=== PATIENT | female | born 1980 | race Caucasian/White ===

== ENCOUNTER 2016-12-19 05:24 | Day surgery (SDC) | payer MEDICAID ==
[2016-12-17 10:59] LABS: HEMATOCRIT 37.9 % (36.0-47.0); HEMOGLOBIN 13.3 g/dL (12.0-15.5); MEAN CORPUSCULAR HGB CONC 35.2 g/dL (32.0-36.0); MEAN CORPUSCULAR VOLUME 94 fl (80-97); RED BLOOD COUNT 4.04 10^6/uL (3.72-5.28); RED CELL DISTRIBUTION WIDTH 14.3 % (11.5-14.0); WHITE BLOOD COUNT 6.3 10^3/uL (4.0-10.5)
[2016-12-17 11:07] LABS: APPEARANCE,URINE CLEAR; BILIRUBIN,URINE NEGATIVE (NEGATIVE); GLUCOSE, URINE NEGATIVE (NEGATIVE); KETONES,URINE NEGATIVE (NEGATIVE); LEUKOCYTE ESTERASE,URINE NEGATIVE (NEGATIVE); NITRITE,URINE NEGATIVE (NEGATIVE); PROTEIN,URINE NEGATIVE (NEGATIVE); URINE SPECIFIC GRAVITY 1.001; UROBILINOGEN,URINE NEGATIVE mg/dL (<2.0)
[2016-12-17 11:21] LABS: ALANINE AMINOTRANSFERASE 25 U/L (9-52); ALBUMIN 4.9 g/dL (3.5-5.0); ALKALINE PHOSPHATASE 74 U/L (38-126); ANION GAP 12 (5-19); ASPARTATE AMINO TRANSFERASE 25 U/L (14-36); BILIRUBIN,DIRECT 0.2 mg/dL (0.0-0.4); BILIRUBIN,TOTAL 0.9 mg/dL (0.2-1.3); BLOOD UREA NITROGEN 11 mg/dL (7-20); CALCIUM 10.1 mg/dL (8.4-10.2); CARBON DIOXIDE 27 mmol/L (22-30); CHLORIDE 101 mmol/L (98-107); CREATININE RESULT 0.59 mg/dL (0.52-1.25); GLUCOSE 79 mg/dL (75-110); POTASSIUM 5.5 mmol/L (3.6-5.0); SODIUM 139.7 mmol/L (137-145); TOTAL PROTEIN 7.8 g/dL (6.3-8.2)
--- NOTE | 2016-12-17 20:08 | EKG REPORT ---
SEVERITY:- NORMAL ECG - SINUS RHYTHM : Confirmed by: Daysi Tapia MD 17-Dec-2016 20:07:37
[~2016-12-19 05:24] MED LIST: CEFAZOLIN 1 GM/D5W RTU 1 GM/50 ML RTUPB IV PRN; IBUPROFEN 800 MG TABLET PO PRN; LACTATED RINGERS 1000 ML IV PRN; LIDOCAINE 0.5% INJ-PF (5 MG/ML) 50 ML SDV SUBCUT PRN; OXYCODONE-ACETAMINOPHEN 5-325 MG TABLET PO PRN; SCOPOLAMINE HYDROBROMIDE 1.5 MG PATCH.TD72 TD PRN
[2016-12-19] MEDS ORDERED: NA PHOS,M-B/NA PHOS,DI-BA (ADULT) 133 ML ENEMA PR SCH (06:00)
[2016-12-19] MEDS ORDERED: FENTANYL CITRATE INJ/PF 250 MCG/5 ML AMPULE ONE (07:00)
[2016-12-19] MEDS ORDERED: MIDAZOLAM 2 MG/2 ML INJ ONE (07:01)
[2016-12-19] MEDS ORDERED: PROPOFOL INJ 200 MG/20 ML VIAL IV ONE (07:01)
[2016-12-19] MEDS ORDERED: EPHEDRINE SULFATE INJ 50 MG/1 ML AMPULE ONE (07:01)
[2016-12-19] MEDS ORDERED: DEXMEDETOMIDINE INJ 80 MCG/20 ML VIAL IV ONE (07:01)
[2016-12-19] MEDS ORDERED: ACETAMINOPHEN 100 ML IV ONE ×2 (07:01→15:00)
[2016-12-19] MEDS ORDERED: MORPHINE SULFATE 10 MG/ML INJ ONE (07:02)
[2016-12-19] MEDS ORDERED: FAMOTIDINE INJ/PF 20 MG/2 ML SDV IV ONE (07:12)
[2016-12-19] MEDS ORDERED: SCOPOLAMINE HYDROBROMIDE 1.5 MG PATCH.TD72 ONE (07:14)
[2016-12-19] MEDS ORDERED: BUPIVACAINE HCL 0.25 % INJ/PF (2.5 MG/1 ML) 30 ML VIAL ONE (07:44)
[2016-12-19] MEDS ORDERED: ONDANSETRON HCL INJ/PF 4 MG/2 ML SDV IV PRN (10:51)
[2016-12-19] MEDS ORDERED: FENTANYL CITRATE INJ/PF 100 MCG/2 ML AMPUL IV PRN ×3 (10:51)
[2016-12-19] MEDS ORDERED: DIPHENHYDRAMINE HCL 50 MG/ML VIAL IV PRN (10:51)
[2016-12-19] MEDS ORDERED: MEPERIDINE HCL/PF INJ 25 MG/1 ML DISP.SYRIN IV PRN (10:51)
--- NOTE | 2016-12-19 10:58 | OPERATIVE REPORT E ---
Operative Report NAME: ANGEL DONATO : 1980 AGE: 36Y DATE OF SURGERY: 12/19/2016 ROOM: PREOPERATIVE DIAGNOSIS: Abnormal uterine bleeding, pelvic pain, adhesive disease, personal history of bilateral mastectomy for breast cancer and positive for the BRCA2 gene mutation. POSTOPERATIVE DIAGNOSIS: Abnormal uterine bleeding, pelvic pain, adhesive disease, personal history of bilateral mastectomy for breast cancer and positive for the BRCA2 gene mutation. Endometriosis. OPERATION: Robotic assisted total laparoscopic hysterectomy with left salpingo-oophorectomy, right salpingectomy, lysis of adhesions, and fulguration of endometriosis. SURGEON: REENA SPENCER M.D. ANESTHESIA: Dr. Jarquin, general. FINDINGS: Dense adhesions of the bladder to the anterior aspect of the uterus. Filmy adhesions of the ovaries and omentum to the pelvic sidewalls. Absent right ovary, but fallopian tube remnant was still present. Left ovary was adhesed to the left pelvic sidewall with several filmy adhesions. COMPLICATIONS: None. ESTIMATED BLOOD LOSS: 200 mL SPECIMENS REMOVED: Uterus, tubes, and left ovary. PROCEDURE: The patient was taken to the operating room, prepared and draped in normal sterile fashion in dorsal lithotomy position. Under sterile conditions, a Andrade catheter was placed to gravity. A sterile speculum was placed in the vagina. The cervix was inspected. The cervix was grasped along the anterior aspect with a single tooth tenaculum. Cervix was prepped with Betadine and then the cervix was dilated to 10 mm, through which a medium V-Care uterine manipulator was placed without difficulty. Speculum was removed. Gloves were changed, and attention was turned to the upper portion of the case. Umbilical skin incision was made to accommodate a GelPort accessory device. This was placed without difficulty, and the abdomen was inflated with approximately 2 liters of CO2 gas. The camera was placed through the camera trocar and the GelPort, and the abdomen was inspected with the above findings noted. The patient was placed in steep Trendelenburg. Under direct visualization, two 5 mm ports were placed approximately 10 cm on either side of the umbilicus to accommodate the robotic trocars. The robot was then docked and the *------*. Using the Vessel Sealer and the monopolar scissors, I began with inspection of the right pelvic sidewall. The remnant of the fallopian tube was then transected and removed using the monopolar scissors, and removed for the accessory port. The right infundibulopelvic ligament was then transected using the Vessel Sealer and the rest of the uterine artery was skeletonized and transected using the Vessel Sealer to the level of the outer external cervical os. The bladder flap was begun using the monopolar scissors and blunt dissection. Attention was then turned to the left portion of the case, where the left ovary was identified adhesed to the left pelvic sidewall. The infundibulopelvic ligament was inspected and identified. This was transected using the Vessel Sealer, carrying this through to the round ligament. The round ligament was transected. The ureter on both sides were reinspected and found to be peristalsing normally and well away from our surgical field. The uterine artery was then transected on the left down to the level of the external cervical os, and the bladder flap was then completed using the monopolar scissors. The colporrhaphy was then begun on the posterior aspect of the uterus, following the V-Care Cup using the monopolar scissors circumferentially all the way around until the specimen was freed, and the specimen and the V-Care were then removed through the vagina. The instruments were replaced with a [employer] Needle Account Management Assistant and the Prograf. These were used using a V-LOC suture to close the vaginal cuff with good hemostasis. The ureters were reinspected and found to be peristalsing normally, and no sign of hydroureter. Instruments were then removed and the robot was undocked. The trocars were removed and the GelPort was removed. The fascia was then closed with 0 Vicryl running. Layer of 3-0 Chromic was used on the subcutaneous layer to close the space, and the skin was closed at all 3 sites with 4-0 Vicryl. The patient tolerated the procedure well. Sponge, lap, and needle counts were correct x2, and the patient was taken to the recovery room in stable condition. DICTATING PHYSICIAN: REENA SPENCER M.D. [id number] PHY#: [id number] ID: [id number] JOB#: [id number] ACCT: [id number] cc:REENA SPENCER M.D. >
[2016-12-19] MEDS: FENTANYL CITRATE INJ/PF 100 MCG/2 ML AMPUL ONE ×2 (11:06→11:23)
[2016-12-19] MEDS ORDERED: IBUPROFEN 800 MG TABLET PO PRN (11:35)
[2016-12-19] MEDS ORDERED: OXYCODONE-ACETAMINOPHEN 5-325 MG TABLET PO PRN (11:35)
[2016-12-19] MEDS ORDERED: MORPHINE SULFATE 10 MG/ML INJ IV PRN (11:36)
[2016-12-19] MEDS ORDERED: KETOROLAC TROMETHAMINE INJ/PF 30 MG/1 ML SDV IV SCH (14:00)
[2016-12-19] MEDS ORDERED: GLYCOPYRROLATE INJ 0.4 MG/2 ML VIAL ONE (14:11)
[2016-12-19] MEDS ORDERED: ONDANSETRON HCL INJ/PF 4 MG/2 ML SDV ONE (14:11)
[2016-12-19] MEDS ORDERED: DEXAMETHASONE SOD PHOSPHATE INJ 4 MG/1 ML VIAL ONE (14:11)
[2016-12-19] MEDS ORDERED: SUCCINYLCHOLINE CHLORIDE INJ 200 MG/10 ML VIAL ONE (14:11)
[2016-12-19] MEDS ORDERED: KETOROLAC TROMETHAMINE 60 MG/2 ML SDV ONE (14:11)
[2016-12-19] MEDS ORDERED: PHENYLEPHRINE HCL INJ/PF 10 MG/1 ML SDV ONE (14:11)
[2016-12-19] MEDS ORDERED: METOCLOPRAMIDE HCL INJ/PF 10 MG/2 ML SDV ONE (14:11)
[2016-12-19] MEDS ORDERED: LIDOCAINE 2% INJ-PF (20 MG/ML) 10 ML AMPUL ONE (14:11)
[2016-12-19] MEDS ORDERED: ROCURONIUM BROMIDE INJ 50 MG/5 ML VIAL IV ONE (14:11)
[2016-12-19] MEDS ORDERED: NEOSTIGMINE METHYLSULFATE 10 MG/10 ML VIAL ONE (14:11)
[2016-12-19 17:30] VITALS: BP 126/93
[2016-12-20] MEDS ORDERED: IBUPROFEN 800 MG TABLET PO PRN (12:00)
== END 2016-12-19 18:02 | disposition home or self-care (01) ==
LOC: OROUT 05:24 → 2S 12:33 → OROUT 18:02
PROVIDERS: ATTEND Obstetrics & Gynecology
PROC: 0UTC4ZZ Resection of Cervix, Percutaneous Endoscopic Approach (ICD-10-PCS; 2016-12-19)
PROC: 0UT14ZZ Resection of Left Ovary, Percutaneous Endoscopic Approach (ICD-10-PCS; 2016-12-19)
PROC: 0UT74ZZ Resection of Bilateral Fallopian Tubes, Percutaneous Endoscopic Approach (ICD-10-PCS; 2016-12-19)
PROC: 8E0W4CZ Robotic Assisted Procedure of Trunk Region, Percutaneous Endoscopic Approach (ICD-10-PCS; 2016-12-19)
PROC: 0UT94ZZ Resection of Uterus, Percutaneous Endoscopic Approach (ICD-10-PCS; principal; 2016-12-19 07:30)
DX: N80.0 Endometriosis of uterus (principal); N83.12 Corpus luteum cyst of left ovary; N83.8 Other noninflammatory disorders of ovary, fallopian tube and broad ligament; N72 Inflammatory disease of cervix uteri; R10.2 Pelvic and perineal pain; G43.909 Migraine, unspecified, not intractable, without status migrainosus; N80.9 Endometriosis, unspecified; Z85.3 Personal history of malignant neoplasm of breast; Z79.899 Other long term (current) drug therapy; Z15.01 Genetic susceptibility to malignant neoplasm of breast; Z88.8 Allergy status to other drugs, medicaments and biological substances; Z88.2 Allergy status to sulfonamides; Z87.891 Personal history of nicotine dependence
CPT/HCPCS: 58571; S2900; 36415; 71020; 80053; 81001; 81025; 840; 84132; 85027; 86850; 86900; 86901; 88307; 93005; 93010; J0131; J0330; J0690; J1100; J1885; J2250; J2270; J2370; J2405; J2704; J2765; J3010; J3490; S0028

== ENCOUNTER 2018-04-20 16:45 | Inpatient (IN) | payer MEDICAID, OTHER ==
[2018-04-20] MEDS ORDERED: NORMAL SALINE 1000 ML 1,000 ML IV ONE (18:25)
--- NOTE | 2018-04-20 18:27 | ER Document Report ---
ED Medical Screen (RME) - General Chief Complaint: Shortness Of Breath Stated Complaint: DIFFICULTY BREATHING Time Seen by Provider: 04/20/18 18:19 TRAVEL OUTSIDE OF THE [place] IN LAST 30 DAYS: No - HPI Notes: 04/20/18 18:26 Patient with history of breast cancer now treated. Patient says she has been cancer free. Patient with a recent trip from [place] coming for shortness of breath. Patient is tachycardic however states that she is very anxious about being here. 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 Dry cough no fevers no chills - Related Data Allergies/Adverse Reactions: nitrofurantoin [From Macrobid] Allergy (Severe, Verified 09/25/14 15:17) swelling of airway promethazine HCl [From Phenergan] Allergy (Intermediate, Verified 09/25/14 15:17 ) HEART RACES codeine Allergy (Verified 12/19/16 06:32) yogurt Allergy (Intermediate, Uncoded 09/25/14 15:17) Hives Past Medical History - Social History Chew tobacco use (# tins/day): No Frequency of alcohol use: Occasional Drug Abuse: None - Past Medical History Cardiac Medical History: Denies: Hx Coronary Artery Disease, Hx Heart Attack, Hx Hypertension, Hx Heart Murmur Pulmonary Medical History: Denies: Hx Asthma, Hx Bronchitis, Hx COPD, Hx Pneumonia Neurological Medical History: Reports: Hx Migraine. Denies: Hx Cerebrovascular Accident, Hx Seizures Renal/ Medical History: Denies: Hx Kidney Stones, Hx Peritoneal Dialysis GI Medical History: Reports: Hx Gastroesophageal Reflux Disease - with pregnanacy only. Denies: Hx Hiatal Hernia, Hx Ulcer Musculoskeltal Medical History: Denies Hx Arthritis Past Surgical History: Reports: Hx Section - x2. Denies: Hx Pacemaker - Immunizations Hx Diphtheria, Pertussis, Tetanus Vaccination: Yes Review of Systems - Review of Systems Respiratory: Cough, Short of breath -: Yes All other systems reviewed and negative Physical Exam - Vital signs Vitals: Temp Pulse Resp BP Pulse Ox 98.6 F 121 H 14 135/87 H 97 04/20/18 16:48 04/20/18 16:48 04/20/18 16:48 04/20/18 16:48 04/20/18 16:48 - General General appearance: Appears well In distress: None - Respiratory Respiratory status: No respiratory distress Chest status: Pain on movement Breath sounds: Other - Decreased on the right Course - Vital Signs Vital signs: Temp Pulse Resp BP Pulse Ox 98.6 F 121 H 14 135/87 H 97 04/20/18 16:48 04/20/18 16:48 04/20/18 16:48 04/20/18 16:48 04/20/18 16:48 Doctor's Discharge - Discharge Referrals: AKILAH MOORE MD [Primary Care Provider] - Follow up as needed
[2018-04-20 18:59] LABS: ABSOLUTE BASOPHILS # (AUTO) 0.1 10^3/uL (0.0-0.2); ABSOLUTE EOSINOPHILS # (AUTO) 0.1 10^3/uL (0.0-0.6); ABSOLUTE LYMPHOCYTES (AUTO) 2.2 10^3/uL (0.5-4.7); ABSOLUTE NEUT (AUTO) 7.9 10^3/uL (1.7-8.2); BASOPHILS % (AUTO) 0.5 % (0-2); EOSINOPHILS % (AUTO) 1.1 % (0-6); HEMOGLOBIN 15.1 g/dL (12.0-15.5); LYMPHOCYTES % (AUTO) 19.2 % (13-45); MEAN CORPUSCULAR HEMOGLOBIN 32.4 pg (27.0-33.4); MEAN CORPUSCULAR HGB CONC 34.4 g/dL (32.0-36.0); MEAN CORPUSCULAR VOLUME 94 fl (80-97); MONOCYTES % (AUTO) 8.8 % (3-13); PLATELET COUNT 400 10^3/uL (150-450); RED BLOOD COUNT 4.67 10^6/uL (3.72-5.28); RED CELL DISTRIBUTION WIDTH 12.6 % (11.5-14.0); SEGMENTED NEUTROPHILS % (AUTO) 70.4 % (42-78); TOTAL CELLS COUNTED % (AUTO) 100 %; WHITE BLOOD COUNT 11.2 10^3/uL (4.0-10.5)
--- NOTE | 2018-04-20 19:11 | RADIOLOGY REPORT (SQ) ---
EXAM DESCRIPTION: CHEST 2 VIEWS COMPLETED DATE/TIME: 04/20/2018 7:00 pm REASON FOR STUDY: sob COMPARISON: 09/25/2014. TECHNIQUE: Frontal and lateral radiographic views of the chest acquired. NUMBER OF VIEWS: Two view. LIMITATIONS: None. FINDINGS: LUNGS AND PLEURA: Extensive increased density throughout the lower half of the right hemit horax. This is consistent with right middle lobe and right lower lobe pneumonia. Mild associated pl eural effusion. Faint nodular densities may be present in the lung lopez as well. No pneumothorax. MEDIASTINUM AND HILAR STRUCTURES: No masses or contour abnormalities. HEART AND VASCULAR STRUCTURES: Heart normal size. No evidence for failure. BONES: No acute findings. HARDWARE: None in the chest. OTHER: No other significant finding. IMPRESSION: 1. Extensive right lung consolidation and small effusion. Consistent with pneumonia. 2. Scattered faint nodules in the lungs, potentially also infectious/ inflammatory. Recommend survei llance followup imaging to document response to therapy. If the infiltrates and opacities do not res olve promptly, chest CT should be considered. TECHNICAL DOCUMENTATION: JOB ID: [id number] [email or web address] All Rights Reserved Reading location - IP/workstation name: [email or web address]
[2018-04-20] MEDS ORDERED: LEVOFLOXACIN 500 MG/D5W RTU 500 MG/100 ML RTUPB IV ONE (19:17)
[2018-04-20 19:18] LABS: ALANINE AMINOTRANSFERASE 22 U/L (9-52); ALBUMIN 4.9 g/dL (3.5-5.0); ALKALINE PHOSPHATASE 103 U/L (38-126); ANION GAP 13 (5-19); ASPARTATE AMINO TRANSFERASE 35 U/L (14-36); BILIRUBIN,DIRECT 0.3 mg/dL (0.0-0.4); BILIRUBIN,TOTAL 0.6 mg/dL (0.2-1.3); BLOOD UREA NITROGEN 8 mg/dL (7-20); CALCIUM 10.3 mg/dL (8.4-10.2); CARBON DIOXIDE 30 mmol/L (22-30); CHLORIDE 101 mmol/L (98-107); GLUCOSE 94 mg/dL (75-110); LIPASE 40.9 U/L (23-300); POTASSIUM 4.2 mmol/L (3.6-5.0); SODIUM 144.3 mmol/L (137-145); TOTAL PROTEIN 8.9 g/dL (6.3-8.2)
[2018-04-20 20:21] LABS: TROPONIN I 0.017 ng/mL
--- NOTE | 2018-04-20 20:28 | ER Document Report ---
ED Respiratory Problem - General Chief Complaint: Shortness Of Breath Stated Complaint: DIFFICULTY BREATHING Time Seen by Provider: 04/20/18 18:19 Mode of Arrival: Ambulatory Information source: Patient TRAVEL OUTSIDE OF THE [place] IN LAST 30 DAYS: No - HPI Patient complains to provider of: Short of breath Onset: Just prior to arrival Duration: Continuous Quality of pain: Achy, Dull Severity: Mild Pain Level: 2 Short of Breath: Mild Chest pain/discomfort: Right Cough: Nonproductive Sputum amount: None Associated symptoms: None Similar symptoms previously: No Recently seen / treated by doctor: No - Related Data Allergies/Adverse Reactions: nitrofurantoin [From Macrobid] Allergy (Severe, Verified 09/25/14 15:17) swelling of airway promethazine HCl [From Phenergan] Allergy (Intermediate, Verified 09/25/14 15:17 ) HEART RACES codeine Allergy (Verified 12/19/16 06:32) yogurt Allergy (Intermediate, Uncoded 09/25/14 15:17) Hives Past Medical History - Social History Smoking Status: Former Smoker Chew tobacco use (# tins/day): No Frequency of alcohol use: Occasional Drug Abuse: None Family History: Reviewed & Not Pertinent Patient has suicidal ideation: No Patient has homicidal ideation: No - Past Medical History Cardiac Medical History: Denies: Hx Coronary Artery Disease, Hx Heart Attack, Hx Hypertension, Hx Heart Murmur Pulmonary Medical History: Denies: Hx Asthma, Hx Bronchitis, Hx COPD, Hx Pneumonia Neurological Medical History: Reports: Hx Migraine. Denies: Hx Cerebrovascular Accident, Hx Seizures Renal/ Medical History: Denies: Hx Kidney Stones, Hx Peritoneal Dialysis GI Medical History: Reports: Hx Gastroesophageal Reflux Disease - with pregnanacy only. Denies: Hx Hiatal Hernia, Hx Ulcer Musculoskeletal Medical History: Denies Hx Arthritis Past Surgical History: Reports: Hx Section - x2. Denies: Hx Pacemaker - Immunizations Hx Diphtheria, Pertussis, Tetanus Vaccination: Yes Review of Systems - Review of Systems Constitutional: denies: Chills, Fever EENT: No symptoms reported Cardiovascular: Chest pain Respiratory: Cough, Short of breath Gastrointestinal: No symptoms reported Genitourinary: No symptoms reported Female Genitourinary: No symptoms reported Musculoskeletal: No symptoms reported Skin: No symptoms reported Hematologic/Lymphatic: No symptoms reported Neurological/Psychological: No symptoms reported -: Yes All other systems reviewed and negative Physical Exam - Vital signs Vitals: Temp Pulse Resp BP Pulse Ox 98.6 F 121 H 14 135/87 H 97 04/20/18 16:48 04/20/18 16:48 04/20/18 16:48 04/20/18 16:48 04/20/18 16:48 - General General appearance: Appears well, Alert In distress: None - HEENT Head: Normocephalic, Atraumatic Eyes: Normal Pupils: PERRL - Respiratory Respiratory status: No respiratory distress Chest status: Nontender Breath sounds: Decreased air movement Chest palpation: Normal - Cardiovascular Rhythm: Regular Heart sounds: Normal auscultation Murmur: No - Abdominal Inspection: Normal Distension: No distension Bowel sounds: Normal Tenderness: Nontender Organomegaly: No organomegaly - Back Back: Normal, Nontender - Extremities General upper extremity: Normal inspection, Nontender, Normal color, Normal ROM , Normal temperature General lower extremity: Normal inspection, Nontender, Normal color, Normal ROM , Normal temperature, Normal weight bearing. No: Rubens's sign - Neurological Neuro grossly intact: Yes Cognition: Normal Orientation: AAOx4 Gabriella Coma Scale Eye Opening: Spontaneous Gabriella Coma Scale Verbal: Oriented Gabriella Coma Scale Motor: Obeys Commands Gabriella Coma Scale Total: 15 Speech: Normal Motor strength normal: LUE, RUE, LLE, RLE Sensory: Normal - Psychological Associated symptoms: Normal affect, Normal mood - Skin Skin Temperature: Warm Skin Moisture: Dry Skin Color: Normal Course - Re-evaluation Re-evalutation: 04/21/18 03:16 Discussed patient care with the hospitalist on-call Dr. Reeves. We will admit patient to the hospital for further evaluation and management. - Vital Signs Vital signs: Temp Pulse Resp BP Pulse Ox 98.6 F 121 H 19 121/88 H 98 04/20/18 16:48 04/20/18 16:48 04/20/18 22:01 04/20/18 22:01 04/20/18 22:01 - Laboratory Result Diagrams: 04/20/18 18:48 04/20/18 18:48 Laboratory results interpreted by me: 04/20/18 04/20/18 04/20/18 18:48 18:48 18:48 WBC 11.2 H D-Dimer 3.58 H Calcium 10.3 H Total Protein 8.9 H - Transfer of Care Notes: 04/21/18 03:16 Pneumonia Discharge - Discharge Clinical Impression: Pleural effusion Pneumonia Qualifiers: Pneumonia type: due to unspecified organism Laterality: right Lung location: lower lobe of lung Qualified Code(s): J18.1 - Lobar pneumonia, unspecified organism Condition: Stable Disposition: ADMITTED INPATIENT Admitting Provider: Dr Reeves Unit Admitted: Telemetry
[2018-04-20] MEDS ORDERED: LEVOFLOXACIN 750 MG/D5W RTU 750 MG/150 ML RTUPB IV ONE (20:37)
--- NOTE | 2018-04-20 21:37 | RADIOLOGY REPORT (SQ) ---
EXAM DESCRIPTION: CTA CHEST COMPLETED DATE/TIME: 04/20/2018 9:18 pm REASON FOR STUDY: sob tachy hx breast ca return from [place] COMPARISON: Chest x-ray 04/20/2018 TECHNIQUE: CT scan of the chest performed using helical scanning technique with dynamic intravenous contrast injection. Images reviewed with lung, soft tissue and bone windows. Reconstructed coronal and sagittal MPR images reviewed. Additional 3 dimensional post-processing performed to develop Maximal Intensity Projection images (PA P). All images stored on PACS. All CT scanners at this facility use dose modulation, iterative reconstruction, and/or weight based d osing when appropriate to reduce radiation dose to as low as reasonably achievable (ALARA). [facility]: Dose Right [facility]: CareDose [facility]: Dose Right [facility]: Teradose 4D [facility]: Scripped CONTRAST TYPE AND DOSE: contrast/concentration: Isovue 350.00 mg/ml; Total Contrast Delivered: 57.0 ml; Total Saline Delivered: 45.7 ml Contrast bolus adequate for pulmonary arteries and aorta. RENAL FUNCTION: BUN 8 creatinine 0.6 RADIATION DOSE: CT Rad equipment meets quality standard of care and radiation dose reduction techniq ues were employed. CTDIvol: 3.3 - 14.3 mGy. DLP: 508 mGy-cm. . LIMITATIONS: None. FINDINGS: LUNGS AND PLEURA: Large right pleural effusion. Multiple pulmonary nodules in both lungs. The largest on each side are by 11 mm. Compressive atelectasis in the right lower lobe. AORTA AND GREAT VESSELS: No aneurysm. Contrast bolus not optimized for the aorta. HEART: No pericardial effusion. No significant coronary artery calcifications. PULMONARY ARTERIES: No emboli visualized in the main pulmonary arteries or the segmental branches. HILAR AND MEDIASTINAL STRUCTURES: Mild right hilar adenopathy. HARDWARE: None in the chest. UPPER ABDOMEN: No significant findings. Limited exam. THYROID AND OTHER SOFT TISSUES: No masses. No adenopathy. BONES: No acute or significant finding. 3D MIPS: Confirm above findings. OTHER: None. IMPRESSION: 1. There is no evidence of pulmonary emboli. 2. There is large right pleural effusion with compressive atelectasis in the right lower lobe and mi ddle lobe. 3. Multiple pulmonary nodules bilaterally. Concerning for metastatic neoplasm. Could be inflammato ry. 4. Right hilar adenopathy. COMMENT: Quality ID # [id number]: Final reports with documentation of one or more dose reduction techniques (e.g., Automated exposure control, adjustment of the mA and/or kV according to patient size, use of iterative reconstruction technique) TECHNICAL DOCUMENTATION: JOB ID: [id number] [employer]- All Rights Reserved Reading location - IP/workstation name: [email or web address]
--- NOTE | 2018-04-20 22:32 | EKG REPORT ---
SEVERITY:- OTHERWISE NORMAL ECG - SINUS TACHYCARDIA : Confirmed by: Abner Samuels 20-Apr-2018 22:31:37
[2018-04-21] MEDS: IPRATROPIUM/ALBUTEROL 0.5-2.5 MG/3 ML AMPUL NEB PRN ×2 (03:16→11:09)
[2018-04-21 05:23] LABS: ABSOLUTE EOSINOPHILS # (AUTO) 0.1 10^3/uL (0.0-0.6); ABSOLUTE LYMPHOCYTES (AUTO) 1.9 10^3/uL (0.5-4.7); ABSOLUTE MONOCYTES (AUTO) 0.8 10^3/uL (0.1-1.4); ABSOLUTE NEUT (AUTO) 5.4 10^3/uL (1.7-8.2); BASOPHILS % (AUTO) 0.5 % (0-2); EOSINOPHILS % (AUTO) 1.2 % (0-6); HEMATOCRIT 37.5 % (36.0-47.0); LYMPHOCYTES % (AUTO) 23.1 % (13-45); MEAN CORPUSCULAR HEMOGLOBIN 32.5 pg (27.0-33.4); MEAN CORPUSCULAR HGB CONC 34.3 g/dL (32.0-36.0); MEAN CORPUSCULAR VOLUME 95 fl (80-97); MONOCYTES % (AUTO) 9.9 % (3-13); PLATELET COUNT 291 10^3/uL (150-450); RED BLOOD COUNT 3.95 10^6/uL (3.72-5.28); RED CELL DISTRIBUTION WIDTH 12.7 % (11.5-14.0); SEGMENTED NEUTROPHILS % (AUTO) 65.3 % (42-78); TOTAL CELLS COUNTED % (AUTO) 100 %; WHITE BLOOD COUNT 8.2 10^3/uL (4.0-10.5)
[2018-04-21 05:24] LABS: HEMOGLOBIN 12.8 g/dL (12.0-15.5)
[2018-04-21 05:49] LABS: ANION GAP 11 (5-19); BLOOD UREA NITROGEN 6 mg/dL (7-20); CALCIUM 9.1 mg/dL (8.4-10.2); CARBON DIOXIDE 25 mmol/L (22-30); CHLORIDE 107 mmol/L (98-107); GLUCOSE 145 mg/dL (75-110); POTASSIUM 3.7 mmol/L (3.6-5.0); SODIUM 142.5 mmol/L (137-145)
--- NOTE | 2018-04-21 06:55 | PDOC H&P ---
History of Present Illness Admission Date/PCP: 04/20/18 23:25 AKILAH MOORE MD Patient complains of: Shortness of breath History of Present Illness: ANGEL DONATO is a 38 year old female with a known past medical history of breast cancer status post mastectomy presenting to the emergency department secondary to shortness of breath. Says she has been having right-sided back pain for the past couple of weeks. States she was in [place] and recently returned on April 09. Since then she has been having shortness of breath with exertion, worsened while lying down. She was seen by her primary care physician recently who advised her to present to the ER for further workup and evaluation. Back pain described as a soreness. Past Medical History Cardiac Medical History: Denies: Coronary Artery Disease, Myocardial Infarction, Hypertension, Heart Murmur Pulmonary Medical History: Denies: Asthma, Bronchitis, Chronic Obstructive Pulmonary Disease (COPD), Pneumonia Neurological Medical History: Reports: Migraine Denies: Seizures Malignancy Medical History: Reports: Breast Cancer GI Medical History: Reports: Gastroesophageal Reflux Disease - with pregnanacy only Denies: Hiatal Hernia Musculoskeltal Medical History: Denies: Arthritis Hematology: Denies: Anemia Past Surgical History Past Surgical History: Reports: Section - x2, Other - Mastectomy Denies: Pacemaker Social History Information Source: Patient Lives with: Spouse/Significant other Smoking Status: Former Smoker Drugs: None Family History Family History: None, Reviewed & Not Pertinent Parental Family History Reviewed: Yes Children Family History Reviewed: Yes Sibling(s) Family History Reviewed.: Yes Medication/Allergy Home Medications: Lorazepam 0.5 mg PO DAILY 12/08/16 Multivit with Calcium,Iron,Min [Multiple Vitamins For Women] 1 each PO DAILY 06/16 Ibuprofen [Motrin 800 mg Tablet] 800 mg PO Q8HP PRN #30 tablet 12/19/16 Allergies/Adverse Reactions: nitrofurantoin [From Macrobid] Allergy (Severe, Verified 09/25/14 15:17) swelling of airway promethazine HCl [From Phenergan] Allergy (Intermediate, Verified 09/25/14 15:17 ) HEART RACES codeine Allergy (Verified 12/19/16 06:32) yogurt Allergy (Intermediate, Uncoded 09/25/14 15:17) Hives Review of Systems Constitutional: ABSENT: chills, fever(s), headache(s), weight gain, weight loss Eyes: ABSENT: visual disturbances Ears: ABSENT: hearing changes Cardiovascular: PRESENT: dyspnea on exertion, orthropnea. ABSENT: chest pain, edema, palpitations Respiratory: PRESENT: dyspnea. ABSENT: cough, hemoptysis Gastrointestinal: ABSENT: abdominal pain, constipation, diarrhea, hematemesis, hematochezia, nausea, vomiting Genitourinary: ABSENT: dysuria, hematuria Musculoskeletal: PRESENT: back pain. ABSENT: joint swelling Integumentary: ABSENT: rash, wounds Neurological: ABSENT: abnormal gait, abnormal speech, confusion, dizziness, focal weakness, syncope Psychiatric: ABSENT: anxiety, depression, homidical ideation, suicidal ideation Endocrine: ABSENT: cold intolerance, heat intolerance, polydipsia, polyuria Hematologic/Lymphatic: ABSENT: easy bleeding, easy bruising Physical Exam Vital Signs: Temp Pulse Resp BP Pulse Ox 98.6 F 121 H 19 121/88 H 98 04/20/18 16:48 04/20/18 16:48 04/20/18 22:01 04/20/18 22:01 04/20/18 22:01 Intake & Output 04/19/18 04/20/18 04/21/18 06:59 06:59 06:59 Intake Total 150 Balance 150 General appearance: PRESENT: no acute distress, well-developed, well-nourished Head exam: PRESENT: atraumatic, normocephalic Eye exam: PRESENT: conjunctiva pink, EOMI, PERRLA. ABSENT: scleral icterus Ear exam: PRESENT: normal external ear exam Mouth exam: PRESENT: moist, tongue midline Neck exam: ABSENT: carotid bruit, JVD, lymphadenopathy, thyromegaly Respiratory exam: PRESENT: clear to auscultation jackie, decreased breath sounds, other - Diminished breath sounds right middle and lower lobe. ABSENT: rales, rhonchi, wheezes Cardiovascular exam: PRESENT: RRR. ABSENT: diastolic murmur, rubs, systolic murmur Pulses: PRESENT: normal dorsalis pedis pul Vascular exam: PRESENT: normal capillary refill GI/Abdominal exam: PRESENT: normal bowel sounds, soft. ABSENT: distended, guarding, mass, organolmegaly, rebound, tenderness Rectal exam: PRESENT: deferred Extremities exam: PRESENT: full ROM. ABSENT: calf tenderness, clubbing, pedal edema Neurological exam: PRESENT: alert, awake, oriented to person, oriented to place , oriented to time, oriented to situation, CN II-XII grossly intact. ABSENT: motor sensory deficit Psychiatric exam: PRESENT: appropriate affect, normal mood. ABSENT: homicidal ideation, suicidal ideation Skin exam: PRESENT: dry, intact, warm. ABSENT: cyanosis, rash Results Laboratory Results: 04/21/18 05:00 04/21/18 05:00 04/21/18 04/21/18 05:00 05:00 WBC 8.2 RBC 3.95 Hgb 12.8 D Hct 37.5 MCV 95 MCH 32.5 MCHC 34.3 RDW 12.7 Plt Count 291 Seg Neutrophils % 65.3 Lymphocytes % 23.1 Monocytes % 9.9 Eosinophils % 1.2 Basophils % 0.5 Absolute Neutrophils 5.4 Absolute Lymphocytes 1.9 Absolute Monocytes 0.8 Absolute Eosinophils 0.1 Absolute Basophils 0.0 Sodium 142.5 Potassium 3.7 Chloride 107 Carbon Dioxide 25 Anion Gap 11 BUN 6 L Creatinine 0.49 L Est GFR ( Amer) > 60 Est GFR (Non-Af Amer) > 60 Glucose 145 H Calcium 9.1 04/21/18 05:00 Troponin I 0.012 Impressions: Chest X-Ray 04/20/18 18:25 IMPRESSION: 1. Extensive right lung consolidation and small effusion. Consistent with pneumonia. 2. Scattered faint nodules in the lungs, potentially also infectious/ inflammatory. Recommend surveillance followup imaging to document response to therapy. If the infiltrates and opacities do not resolve promptly, chest CT should be considered. Chest/Abdomen CTA 04/20/18 19:16 IMPRESSION: 1. There is no evidence of pulmonary emboli. 2. There is large right pleural effusion with compressive atelectasis in the right lower lobe and middle lobe. 3. Multiple pulmonary nodules bilaterally. Concerning for metastatic neoplasm. Could be inflammatory. 4. Right hilar adenopathy. Assessment & Plan - Diagnosis (1) Pleural effusion Is this a current diagnosis for this admission?: Yes (2) Pneumonia Qualifiers: Pneumonia type: due to unspecified organism Laterality: right Lung location: lower lobe of lung Qualified Code(s): J18.1 - Lobar pneumonia, unspecified organism Is this a current diagnosis for this admission?: Yes (3) BRCA positive Is this a current diagnosis for this admission?: Yes Plan: To be admitted for further monitoring and evaluation. Patient started on Levaquin 750 mg p.o. 1, will continue p.o. daily at this time. Repeat CBC, BMP in a.m. CT scan indicative of right-sided pleural effusion of middle and lower lobes along with hilar lymphadenopathy suggestive of potential metastatic cancer. Will consult pulmonology as well as oncology this a.m. Continuous pulse ox monitoring. Continue patient's home medications. Tylenol, ibuprofen as needed pain, fever. Further workup and evaluation as per specialist - Time Time Spent: 50 to 70 Minutes Medications reviewed and adjusted accordingly: Yes Anticipated discharge: Home
--- NOTE | 2018-04-21 09:00 | PDOC CONSULTATION ---
Consultation Consult Date: 04/21/18 Consult reason:: Hematology/Oncology consultation was requested for patient with new pulmonary nodules and pleural effusion with history of breast cancer. 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 She underwent ACT x 8 cycles, followed by bilateral mastectomy. She does have BRCA2 gene mutation. She has had no evidence of cancer since 07/2016. She was last seen in my office in November of this year. She presented to her physician after returning from a trip [place] and developing gradual worsening of chest pain in her left lower rib cage. She had some dyspnea and cough, but no fevers. CT chest did not show PE, but did show pulmonary nodules and pleural effusion consistent with either infection, or metastatic cancer. She has been started on Levaquin. Currently, patient states that she is very scared, but otherwise, only complains of the pain. Past Medical History Cardiac Medical History: Denies: Coronary Artery Disease, Myocardial Infarction, Hypertension, Heart Murmur Pulmonary Medical History: Denies: Asthma, Bronchitis, Chronic Obstructive Pulmonary Disease (COPD), Pneumonia Neurological Medical History: Reports: Migraine Denies: Seizures Malignancy Medical History: Reports: Breast Cancer GI Medical History: Reports: Gastroesophageal Reflux Disease - with pregnanacy only Denies: Hiatal Hernia Musculoskeltal Medical History: Denies: Arthritis Hematology: Denies: Anemia Past Surgical History Past Surgical History: Reports: Section - x2, Other - Bilateral Mastectomies, Implant reconstruction, Bilateral Oophorectomy. Denies: Pacemaker Social History Lives with: Spouse/Significant other Smoking Status: Former Smoker Drugs: None Past Social History Note: She is and a social drinker. Lives with . Family History Parental Family History Reviewed: Yes - Mother with ovarian cancer at age 21. Maternal uncle Prostate Ca age 49 Children Family History Reviewed: NA Sibling(s) Family History Reviewed.: Yes Medication/Allergy Home Medications: Lorazepam 0.5 mg PO DAILY 12/08/16 Multivit with Calcium,Iron,Min [Multiple Vitamins For Women] 1 each PO DAILY 06/16 Ibuprofen [Motrin 800 mg Tablet] 800 mg PO Q8HP PRN #30 tablet 12/19/16 Allergies/Adverse Reactions: nitrofurantoin [From Macrobid] Allergy (Severe, Verified 09/25/14 15:17) swelling of airway promethazine HCl [From Phenergan] Allergy (Intermediate, Verified 09/25/14 15:17 ) HEART RACES codeine Allergy (Verified 12/19/16 06:32) yogurt Allergy (Intermediate, Uncoded 09/25/14 15:17) Hives Review of Systems Constitutional: ABSENT: fever(s) Ears: ABSENT: hearing changes Nose, Mouth, and Throat: ABSENT: sore throat Cardiovascular: PRESENT: chest pain, dyspnea on exertion. ABSENT: palpitations Respiratory: PRESENT: cough. ABSENT: hemoptysis Gastrointestinal: ABSENT: constipation, diarrhea, nausea, vomiting Genitourinary: ABSENT: dysuria, hematuria Musculoskeletal: ABSENT: muscle weakness Integumentary: ABSENT: rash Neurological: ABSENT: numbness, weakness Psychiatric: PRESENT: anxiety Hematologic/Lymphatic: ABSENT: lymphadenopathy Physical Exam Vital Signs: Temp Pulse Resp BP Pulse Ox 98.6 F 121 H 18 125/83 90 L 04/20/18 16:48 04/20/18 16:48 04/21/18 07:00 04/20/18 23:01 04/21/18 07:00 Intake & Output 04/20/18 04/21/18 04/22/18 06:59 06:59 06:59 Intake Total 150 Balance 150 General appearance: PRESENT: no acute distress, well-developed, well-nourished Exam: 38 year old female. Head exam: PRESENT: atraumatic Eye exam: PRESENT: PERRLA Ear exam: PRESENT: normal external ear exam Mouth exam: PRESENT: neck supple, tongue midline Neck exam: ABSENT: tenderness, thyromegaly Respiratory exam: PRESENT: decreased breath sounds - Right side 1/[address] way up., unlabored Cardiovascular exam: PRESENT: RRR, tachycardia Pulses: PRESENT: normal dorsalis pedis pul Vascular exam: ABSENT: pallor GI/Abdominal exam: PRESENT: soft. ABSENT: organolmegaly, tenderness Extremities exam: ABSENT: pedal edema Neurological exam: PRESENT: alert, awake, oriented to person, oriented to place , oriented to time, oriented to situation Psychiatric exam: PRESENT: appropriate affect Focused psych exam: ABSENT: psychomotor agitation, restlessness Skin exam: PRESENT: normal color Results Laboratory Results: 04/21/18 05:00 04/21/18 05:00 04/21/18 04/21/18 05:00 05:00 WBC 8.2 RBC 3.95 Hgb 12.8 D Hct 37.5 MCV 95 MCH 32.5 MCHC 34.3 RDW 12.7 Plt Count 291 Seg Neutrophils % 65.3 Lymphocytes % 23.1 Monocytes % 9.9 Eosinophils % 1.2 Basophils % 0.5 Absolute Neutrophils 5.4 Absolute Lymphocytes 1.9 Absolute Monocytes 0.8 Absolute Eosinophils 0.1 Absolute Basophils 0.0 Sodium 142.5 Potassium 3.7 Chloride 107 Carbon Dioxide 25 Anion Gap 11 BUN 6 L Creatinine 0.49 L Est GFR ( Amer) > 60 Est GFR (Non-Af Amer) > 60 Glucose 145 H Calcium 9.1 04/21/18 05:00 Troponin I 0.012 Impressions: Chest X-Ray 04/20/18 18:25 IMPRESSION: 1. Extensive right lung consolidation and small effusion. Consistent with pneumonia. 2. Scattered faint nodules in the lungs, potentially also infectious/ inflammatory. Recommend surveillance followup imaging to document response to therapy. If the infiltrates and opacities do not resolve promptly, chest CT should be considered. Chest/Abdomen CTA 04/20/18 19:16 IMPRESSION: 1. There is no evidence of pulmonary emboli. 2. There is large right pleural effusion with compressive atelectasis in the right lower lobe and middle lobe. 3. Multiple pulmonary nodules bilaterally. Concerning for metastatic neoplasm. Could be inflammatory. 4. Right hilar adenopathy. Status: Image reviewed by me Assessment & Plan - Diagnosis (1) Pleural effusion Is this a current diagnosis for this admission?: Yes Plan: I discussed the results of the CT scan with the patient. Although this may be either infectious or metastatic cancer, I cannot say for sure at this time. I would recommend thoracentesis to send fluid for cytology. Patient states that she will consider this, but is not sure that she wants this now. (2) Pneumonia Qualifiers: Pneumonia type: due to unspecified organism Laterality: right Lung location: lower lobe of lung Qualified Code(s): J18.1 - Lobar pneumonia, unspecified organism Is this a current diagnosis for this admission?: Yes Plan: Levaquin was given in the ED, but has not been continued yet on admission. I would continue antibiotics for now. Plan to repeat CT in a few weeks (3) Bilateral breast cancer Is this a current diagnosis for this admission?: Yes Plan: No evidence of disease since 2016, but she does have BRCA2 mutation, so is still at risk for other cancers. She has had bilateral mastectomies and bilateral oophorectomies, so has done everything possible to prevent further disease. - Plan Summary Plan Summary: I will continue to follow with you. Thank you for the consultation. Patient was discussed with Hospitalists.
[2018-04-21] MEDS: PANTOPRAZOLE SODIUM 40 MG VIAL IV SCH ×2 (11:50→21:43)
[2018-04-21] MEDS: LEVOFLOXACIN 750 MG/D5W RTU 750 MG/150 ML RTUPB IV SCH (11:51)
[2018-04-21] MEDS: ENOXAPARIN SODIUM INJ 40 MG/0.4 ML DISP.SYRIN SUBCUT SCH ×2 (11:51→12:09)
--- NOTE | 2018-04-21 15:52 | RADIOLOGY REPORT (SQ) ---
EXAM DESCRIPTION: U/S CHEST COMPLETED DATE/TIME: 04/21/2018 3:19 pm REASON FOR STUDY: Quantify pleural effusion, bilateral COMPARISON: None. TECHNIQUE: Dynamic and static grayscale images acquired of the localized site of clinical concern an d recorded on PACS. Additional selected color Doppler and spectral images recorded. SITE OF CONCERN: Pleural space. LIMITATIONS: None. FINDINGS: Large right pleural effusion. No effusion on the left. IMPRESSION: Large right pleural effusion. TECHNICAL DOCUMENTATION: JOB ID: [id number] [employer]- All Rights Reserved Reading location - IP/workstation name: [email or web address]
[2018-04-21] MEDS ORDERED: LORAZEPAM 1 MG TABLET ONE (17:29)
[2018-04-21] MEDS: LORAZEPAM 0.5 MG TABLET PO SCH (17:41)
[2018-04-21] MEDS ORDERED: LIDOCAINE 2% INJ-PF (100 MG/5 ML) SYRINGE ONE (18:19)
--- NOTE | 2018-04-21 18:33 | PDOC PROGRESS REPORT ---
Subjective Progress Note for:: 04/21/18 Subjective:: The patient is resting quietly. No new complaints. She states that she has decided to go forward with the thoracentesis. Reason For Visit: DYSPNEA, PLEURAL EFFUSION Physical Exam Vital Signs: Temp Pulse Resp BP Pulse Ox 97.9 F 115 H 16 113/74 98 04/21/18 15:39 04/21/18 16:32 04/21/18 16:32 04/21/18 15:39 04/21/18 16:32 Intake & Output 04/20/18 04/21/18 04/22/18 06:59 06:59 06:59 Intake Total 150 473 Balance 150 473 General appearance: PRESENT: no acute distress, cooperative, thin, well- developed, well-nourished Respiratory exam: PRESENT: rales, wheezes, other - No increased work of breathing. Dullness to percussion mid lung and down to base on right lung. No rales or rhonchi in the superior lung lopez of the right lung. Cardiovascular exam: PRESENT: RRR, other - No lateral PMI. No thrills.. ABSENT : gallop, rubs, systolic murmur GI/Abdominal exam: PRESENT: normal bowel sounds, soft. ABSENT: hernia, mass, organolmegaly, tenderness Rectal exam: PRESENT: deferred Extremities exam: ABSENT: clubbing, joint swelling, pedal edema, tenderness Musculoskeletal exam: PRESENT: normal inspection. ABSENT: deformity, dislocation, tenderness Neurological exam: PRESENT: alert, awake, oriented to person, oriented to place , oriented to time, oriented to situation, CN II-XII grossly intact. ABSENT: motor sensory deficit Psychiatric exam: PRESENT: anxious, appropriate affect Skin exam: PRESENT: dry, intact, warm Results Laboratory Results: 04/21/18 05:00 04/21/18 05:00 04/21/18 04/21/18 05:00 05:00 WBC 8.2 RBC 3.95 Hgb 12.8 D Hct 37.5 MCV 95 MCH 32.5 MCHC 34.3 RDW 12.7 Plt Count 291 Seg Neutrophils % 65.3 Lymphocytes % 23.1 Monocytes % 9.9 Eosinophils % 1.2 Basophils % 0.5 Absolute Neutrophils 5.4 Absolute Lymphocytes 1.9 Absolute Monocytes 0.8 Absolute Eosinophils 0.1 Absolute Basophils 0.0 Sodium 142.5 Potassium 3.7 Chloride 107 Carbon Dioxide 25 Anion Gap 11 BUN 6 L Creatinine 0.49 L Est GFR ( Amer) > 60 Est GFR (Non-Af Amer) > 60 Glucose 145 H Calcium 9.1 04/21/18 05:00 Troponin I 0.012 Impressions: Chest X-Ray 04/20/18 18:25 IMPRESSION: 1. Extensive right lung consolidation and small effusion. Consistent with pneumonia. 2. Scattered faint nodules in the lungs, potentially also infectious/ inflammatory. Recommend surveillance followup imaging to document response to therapy. If the infiltrates and opacities do not resolve promptly, chest CT should be considered. Chest/Abdomen CTA 04/20/18 19:16 IMPRESSION: 1. There is no evidence of pulmonary emboli. 2. There is large right pleural effusion with compressive atelectasis in the right lower lobe and middle lobe. 3. Multiple pulmonary nodules bilaterally. Concerning for metastatic neoplasm. Could be inflammatory. 4. Right hilar adenopathy. Chest Ultrasound 04/21/18 14:00 IMPRESSION: Large right pleural effusion. Assessment & Plan - Diagnosis (1) Pleural effusion Is this a current diagnosis for this admission?: Yes Plan: Large right pleural effusion. The patient has consented for thoracentesis so fluid may be sent for cytology. (2) Pneumonia Qualifiers: Pneumonia type: due to unspecified organism Laterality: right Lung location: lower lobe of lung Qualified Code(s): J18.1 - Lobar pneumonia, unspecified organism Is this a current diagnosis for this admission?: Yes Plan: IV antibiotics. (3) BRCA gene mutation positive in female Is this a current diagnosis for this admission?: Yes Plan: Noted. I have discussed the patient with Dr. Larry. (4) BRCA positive Is this a current diagnosis for this admission?: Yes (5) Bilateral breast cancer Qualifiers: Patient sex: female Is this a current diagnosis for this admission?: Yes Plan: Noted. I have discussed the patient with Dr. Larry. - Time Time Spent with patient: 25-34 minutes
--- NOTE | 2018-04-21 19:05 | RADIOLOGY REPORT (SQ) ---
EXAM DESCRIPTION: U/S CHEST COMPLETED DATE/TIME: 04/21/2018 6:54 pm REASON FOR STUDY: to localize thoracentesis site, right COMPARISON: 04/21/2018 TECHNIQUE: Sonographic sections through the right chest were obtained to determine a site for thorac entesis. SITE OF CONCERN: Right chest LIMITATIONS: None. FINDINGS: Right pleural effusion is again identified. IMPRESSION: Right pleural effusion was identified for thoracentesis. TECHNICAL DOCUMENTATION: JOB ID: [id number] [employer]- All Rights Reserved Reading location - IP/workstation name: [email or web address]
[2018-04-21 21:46] LABS: FLUID SOURCE LUNG; FLUID TYPE PLEURAL
[2018-04-21 21:47] LABS: FLUID APPEARANCE SLIGHTLY HAZY; FLUID COLOR DARK YELLOW; FLUID VISCOSITY LIQUID
[2018-04-21 21:59] LABS: TOTAL PROTEIN 6.9 g/dL (6.3-8.2)
--- NOTE | 2018-04-21 23:01 | OPERATIVE REPORT E ---
Operative Report NAME: ANGEL DONATO : 1980 AGE: 38Y DATE OF SURGERY: 04/21/2018 ROOM: 419 BRIEF HISTORY: The patient is a 38-year-old female who came in with a past medical history of breast cancer, right breast who came in with acute shortness of breath and pleuritic chest pain showing pleural effusion on chest x-ray and CT scan with pulmonary metastases bilateral. Patient provided consent to the procedure. OPERATION: Ultrasound guided thoracentesis. SURGEON: TIGIST MALIK M.D. MEDICATIONS: Include 1% lidocaine solution, total dose of 20 mL. REMARKS. Consent was provided by the patient. Discussed about indication of the thoracentesis and risks of the procedure which include pneumothorax, infection or bleeding. Patient verbalized understanding of indications and risks of the procedure. Ultrasound was performed on the right chest to localize the thoracentesis entry site by myself. Chlorhexidine wipes were applied on the thoracentesis site. Sterile drapes were applied on the thoracentesis site to maintain sterile areas. Using a septic technique,sterile gloves and sterile drapes, the thoracentesis entry site was infiltrated with 1% lidocaine subcutaneously and intramuscularly and above the rib. A small skin incision was placed on the thoracentesis entry site and the thoracentesis needle was inserted through the incision skin site. As the thoracentesis needle was inserted above the rib, pleural fluid was aspirated and a plastic catheter overlying the needle was pushed into the pleural cavity. Pleural fluid was collected which was serosanguineous to a total of 1000 mL. Patient tolerated the procedure and the pleural fluid will be sent for pathology and other pleural fluid analysis and cultures. Serum LDH, protein and glucose were ordered. DICTATING PHYSICIAN: TIGIST MALIK MD,LUIS,MPH [id number] PHY#: [id number] ID: [id number] JOB#: [id number] ACCT: [id number] cc:TIGIST MALIK M.D. > MTDD
[2018-04-22] MEDS ORDERED: ONDANSETRON 4 MG TAB.RAPDIS ONE (07:02)
--- NOTE | 2018-04-22 08:39 | RADIOLOGY REPORT (SQ) ---
EXAM DESCRIPTION: CHEST SINGLE VIEW COMPLETED DATE/TIME: 04/21/2018 9:41 pm REASON FOR STUDY: s/p thoracentesis, right COMPARISON: 04/20/2018 EXAM PARAMETERS: NUMBER OF VIEWS: One view. TECHNIQUE: Single frontal radiographic view of the chest acquired. RADIATION DOSE: NA LIMITATIONS: None. FINDINGS: LUNGS AND PLEURA: No evidence of pneumothorax. Stable right lower lobe consolidation and small pleural effusion are again identified. Stable nodules in the lungs. MEDIASTINUM AND HILAR STRUCTURES: No masses. Contour normal. HEART AND VASCULAR STRUCTURES: Heart normal in size. Normal vasculature. BONES: No acute findings. HARDWARE: None in the chest. OTHER: No other significant finding. IMPRESSION: 1 Status post right thoracentesis. No evidence of pneumothorax. 2. Extensive right lung consolidation and small effusion again identified. 3. Stable scattered nodules in the lungs. TECHNICAL DOCUMENTATION: JOB ID: [id number] [employer]- All Rights Reserved Reading location - IP/workstation name: [email or web address]
--- NOTE | 2018-04-22 09:42 | PDOC PROGRESS REPORT ---
Subjective Progress Note for:: 04/22/18 Subjective:: Patient is very scared and worried. She did have the thoracentesis yesterday and her breathing improved greatly afterward. She is awaiting cytology report. ROS: no abdominal pain. Some nausea with dry heaves. No weakness or numbness. Reason For Visit: DYSPNEA, PLEURAL EFFUSION Physical Exam Vital Signs: Temp Pulse Resp BP Pulse Ox 98.6 F 115 H 18 118/73 99 04/22/18 04:08 04/22/18 07:00 04/21/18 19:42 04/22/18 04:08 04/22/18 04:08 Intake & Output 04/21/18 04/22/18 04/23/18 06:59 06:59 06:59 Intake Total 150 917 Output Total 1700 Balance 150 -783 Weight 55.7 kg General appearance: PRESENT: no acute distress, well-developed, well-nourished Head exam: PRESENT: normocephalic Respiratory exam: PRESENT: decreased breath sounds - 1/2 way up on right. Clear left. Cardiovascular exam: PRESENT: RRR, tachycardia Extremities exam: ABSENT: pedal edema Skin exam: PRESENT: normal color Results Laboratory Results: 04/21/18 05:00 04/21/18 05:00 04/21/18 04/21/18 19:00 21:30 Total Protein 6.9 Fluid Type PLEURAL Fluid Source LUNG Fluid Color DARK YELLOW Fluid Appearance SLIGHTLY HAZY Fluid Viscosity LIQUID Fluid WBC 113 Fluid RBC 6800 04/21/18 05:00 Troponin I 0.012 Impressions: Chest/Abdomen CTA 04/20/18 19:16 IMPRESSION: 1. There is no evidence of pulmonary emboli. 2. There is large right pleural effusion with compressive atelectasis in the right lower lobe and middle lobe. 3. Multiple pulmonary nodules bilaterally. Concerning for metastatic neoplasm. Could be inflammatory. 4. Right hilar adenopathy. Chest Ultrasound 04/21/18 18:22 IMPRESSION: Right pleural effusion was identified for thoracentesis. Chest X-Ray 04/21/18 20:00 IMPRESSION: 1 Status post right thoracentesis. No evidence of pneumothorax. 2. Extensive right lung consolidation and small effusion again identified. 3. Stable scattered nodules in the lungs. Assessment & Plan - Diagnosis (1) Pleural effusion Is this a current diagnosis for this admission?: Yes Plan: s/p thoracentesis yesterday. However, large pleural effusions remains. Await cytology report. (2) Pneumonia Qualifiers: Pneumonia type: due to unspecified organism Laterality: right Lung location: lower lobe of lung Qualified Code(s): J18.1 - Lobar pneumonia, unspecified organism Is this a current diagnosis for this admission?: Yes Plan: Continues Levaquin. Await cultures. (3) BRCA gene mutation positive in female Is this a current diagnosis for this admission?: Yes Plan: s/p Bilateral mastectomy and bilateral oophorectomy.
[2018-04-22] MEDS: LORAZEPAM 0.5 MG TABLET PO PRN (10:32)
[2018-04-22] MEDS ORDERED: LORAZEPAM 1 MG TABLET ONE (10:33)
--- NOTE | 2018-04-22 11:29 | CONSULTATION REPORT E ---
Consultation Report NAME: ANGEL DONATO : 1980 AGE: 38Y DATE: 04/21/2018 419 A TO: TIGIST MALIK M.D. FROM: VIKASH SUÁREZ M.D. Requesting Physician The patient is a 38-year-old female who came in with pleuritic chest pain and shortness of breath which started about a few months ago. The patient just came from [place], where she was traveling in [place]. Came about 1 or 2 weeks ago. Slight shortness of breath. Thus, the patient went to her primary care physician and was instructed to go to the emergency room for further evaluation. The patient denies any fever or chills, increased cough, or current sputum production or hemoptysis. The patient has a history of breast cancer status post mastectomy a few years ago. Told that she was cancer-free last year. The patient had a CT scan done on admission, showing moderate amount of pleural effusion. Chest ultrasound this morning confirms the pleural effusion which is new on the right side. The patient consented to the ultrasound-guided thoracentesis this afternoon. The patient verbalized understanding of the indication, risks and complications of the procedure. The ultrasound-guided thoracentesis done this evening removing about 1 liter of serosanguineous fluid. The patient tolerated the procedure and there was no adverse outcome during or after the procedure. Chest x-ray was performed following the ultrasound-guided thoracentesis, which showed no pneumothorax. PAST MEDICAL HISTORY: Denies history of heart attack, hypertension, heart murmur, and no history of COPD or pneumonia or asthma. No seizures. The patient has a history of gastroesophageal reflux especially. SURGICAL HISTORY: section x2. Mastectomy. SOCIAL HISTORY: The patient lives with spouse. Former smoker. Denies any illicit drug use. HOME MEDICATIONS: 1. Lorazepam. 2. Multivitamin. 3. Ibuprofen. ALLERGIES: NITROFURANTOIN, PHENERGAN, CODEINE. REVIEW OF SYSTEMS: CONSTITUTIONAL: No fever or chills. EYES: No conjunctival pallor. ENT: No ear drainage or nasal discharge. NECK: No swelling. No neck tenderness. No lymphadenopathy. CHEST/LUNGS: Decreased breath sounds right side. No coarse crackles or wheezing. CARDIAC: S1, S2. No murmur. ABDOMEN: Flabby, positive bowel sounds, soft, nondistended, nontender. EXTREMITIES: no edema or cellulitis. PHYSICAL EXAMINATION: GENERAL: The patient appeared awake, alert, and oriented. VITAL SIGNS: Temperature 97.9, heart rate 115, blood pressure 113/74, respiratory rate 16, saturation 98% on room air. HEENT: Eyes: No conjunctival pallor. EARS, NOSE, THROAT: No ear drainage or nasal discharge. NECK: No neck tenderness. CHEST: No mass, no wheezing, no rhonchi. No coarse crackles. Decreased breath sounds right lung. ABDOMEN: Flabby. Positive bowel sounds. Soft, nondistended, nontender. EXTREMITIES: No joint swelling. LABORATORY: CBC done today showed white count of 8.2, hemoglobin 12.8, hematocrit 37.5, platelet count 481. Chemistry done today showed sodium 142, potassium 3.7, chloride 107, CO2 of 25, BUN 6, creatinine 0.49, glucose 145, calcium 9. Chest x-ray showed moderate amount of pleural effusion. CT scan showed multiple pulmonary metastases bilaterally. Mild amount of pleural effusion. ASSESSMENT: 1. PLEURAL EFFUSION, MODERATE, RIGHT. Serosangienous pleural fluid, suspicious for malignancy. 2. HISTORY OF BREAST CARCINOMA. Status post mastectomy and pulmonary metastases bilaterally on chest CT scan this admission. PLAN/RECOMMENDATIONS: 1. Will send the pleural fluid for cytology for AFB, fungal cultures, and cell count, and chemistry. 2. Recommend discussion and family meeting for patient's condition. 3. May consider PleurX catheter placement. There is a high likelihood that the pleural effusion will re-accumulate and progress. The patient may be able to go home with a PleurX catheter, and recommend training for using the PleurX catheter. DICTATING PHYSICIAN: TIGIST MALIK MD,LUIS,MPH [id number] PHY#: [id number] ID: [id number] JOB#: [id number] ACCT: [id number] cc:TIGIST MALIK M.D. > VALENTE
[2018-04-22 11:38] LABS: ABSOLUTE EOSINOPHILS # (AUTO) 0.1 10^3/uL (0.0-0.6); ABSOLUTE LYMPHOCYTES (AUTO) 1.5 10^3/uL (0.5-4.7); ABSOLUTE MONOCYTES (AUTO) 0.9 10^3/uL (0.1-1.4); BASOPHILS % (AUTO) 0.5 % (0-2); HEMATOCRIT 39.1 % (36.0-47.0); LYMPHOCYTES % (AUTO) 15.9 % (13-45); MEAN CORPUSCULAR HEMOGLOBIN 33.3 pg (27.0-33.4); MEAN CORPUSCULAR HGB CONC 35.7 g/dL (32.0-36.0); MEAN CORPUSCULAR VOLUME 93 fl (80-97); MONOCYTES % (AUTO) 9.6 % (3-13); PLATELET COUNT 340 10^3/uL (150-450); RED BLOOD COUNT 4.19 10^6/uL (3.72-5.28); RED CELL DISTRIBUTION WIDTH 13.2 % (11.5-14.0); TOTAL CELLS COUNTED % (AUTO) 100 %; WHITE BLOOD COUNT 9.6 10^3/uL (4.0-10.5)
[2018-04-22 11:51] LABS: ALANINE AMINOTRANSFERASE 24 U/L (9-52); ALBUMIN 4.1 g/dL (3.5-5.0); ALKALINE PHOSPHATASE 79 U/L (38-126); ANION GAP 12 (5-19); ASPARTATE AMINO TRANSFERASE 24 U/L (14-36); BILIRUBIN,DIRECT 0.3 mg/dL (0.0-0.4); BILIRUBIN,TOTAL 0.5 mg/dL (0.2-1.3); BLOOD UREA NITROGEN 6 mg/dL (7-20); CARBON DIOXIDE 25 mmol/L (22-30); CHLORIDE 104 mmol/L (98-107); GLUCOSE 106 mg/dL (75-110); POTASSIUM 4.6 mmol/L (3.6-5.0); TOTAL PROTEIN 7.2 g/dL (6.3-8.2)
[2018-04-22] MEDS: ONDANSETRON 4 MG TAB.RAPDIS PO PRN (12:08)
[2018-04-22] MEDS: ENOXAPARIN SODIUM INJ 40 MG/0.4 ML DISP.SYRIN SUBCUT SCH (12:09)
[2018-04-22] MEDS: LEVOFLOXACIN 750 MG/D5W RTU 750 MG/150 ML RTUPB IV SCH (12:09)
[2018-04-22] MEDS: PANTOPRAZOLE SODIUM 40 MG VIAL IV SCH ×2 (12:09→21:37)
[2018-04-22] MEDS ORDERED: ACETAMINOPHEN 325 MG TABLET PO PRN (15:08)
--- NOTE | 2018-04-22 17:29 | PDOC PROGRESS REPORT ---
Subjective Progress Note for:: 04/22/18 Subjective:: The patient is complaining of anxiety over her pending thoracentesis results. She does state that her respiratory status is much improved after her thoracentesis. Reason For Visit: DYSPNEA, PLEURAL EFFUSION Physical Exam Vital Signs: Temp Pulse Resp BP Pulse Ox 98.2 F 97 17 132/73 H 100 04/22/18 16:00 04/22/18 16:00 04/22/18 16:00 04/22/18 16:00 04/22/18 16:00 Intake & Output 04/21/18 04/22/18 04/23/18 06:59 06:59 06:59 Intake Total 150 917 Output Total 1700 Balance 150 -783 Weight 55.7 kg General appearance: PRESENT: no acute distress, cooperative, thin Neck exam: ABSENT: JVD, lymphadenopathy, meningismus, tenderness, thyromegaly, tracheal deviation Respiratory exam: PRESENT: other - Improved aeration.. ABSENT: rales, rhonchi, wheezes Cardiovascular exam: PRESENT: RRR, other - No lateral PMI. No thrills.. ABSENT : gallop, rubs, systolic murmur Pulses: PRESENT: normal carotid pulses, normal dorsalis pedis pul GI/Abdominal exam: PRESENT: firm, normal bowel sounds, soft. ABSENT: hernia, mass, organolmegaly, tenderness Extremities exam: ABSENT: clubbing, pedal edema, tenderness Musculoskeletal exam: PRESENT: normal inspection. ABSENT: deformity, dislocation, tenderness Neurological exam: PRESENT: alert, awake, oriented to person, oriented to place , oriented to time, oriented to situation, CN II-XII grossly intact. ABSENT: motor sensory deficit Psychiatric exam: PRESENT: anxious, normal mood Skin exam: PRESENT: dry, intact, warm Results Laboratory Results: 04/22/18 10:54 04/22/18 10:54 04/21/18 04/21/18 04/22/18 19:00 21:30 10:54 WBC 9.6 RBC 4.19 Hgb 14.0 Hct 39.1 MCV 93 MCH 33.3 MCHC 35.7 RDW 13.2 Plt Count 340 Seg Neutrophils % 73.0 Lymphocytes % 15.9 Monocytes % 9.6 Eosinophils % 1.0 Basophils % 0.5 Absolute Neutrophils 7.0 Absolute Lymphocytes 1.5 Absolute Monocytes 0.9 Absolute Eosinophils 0.1 Absolute Basophils 0.0 Sodium Potassium Chloride Carbon Dioxide Anion Gap BUN Creatinine Est GFR ( Amer) Est GFR (Non-Af Amer) Glucose Calcium Total Bilirubin AST ALT Alkaline Phosphatase Total Protein 6.9 Albumin Fluid Type PLEURAL Fluid Source LUNG Fluid Color DARK YELLOW Fluid Appearance SLIGHTLY HAZY Fluid Viscosity LIQUID Fluid WBC 113 Fluid RBC 6800 04/22/18 10:54 WBC RBC Hgb Hct MCV MCH MCHC RDW Plt Count Seg Neutrophils % Lymphocytes % Monocytes % Eosinophils % Basophils % Absolute Neutrophils Absolute Lymphocytes Absolute Monocytes Absolute Eosinophils Absolute Basophils Sodium 141.0 Potassium 4.6 Chloride 104 Carbon Dioxide 25 Anion Gap 12 BUN 6 L Creatinine 0.66 Est GFR ( Amer) > 60 Est GFR (Non-Af Amer) > 60 Glucose 106 Calcium 10.0 Total Bilirubin 0.5 AST 24 ALT 24 Alkaline Phosphatase 79 Total Protein 7.2 Albumin 4.1 Fluid Type Fluid Source Fluid Color Fluid Appearance Fluid Viscosity Fluid WBC Fluid RBC 04/21/18 05:00 Troponin I 0.012 Impressions: Chest/Abdomen CTA 04/20/18 19:16 IMPRESSION: 1. There is no evidence of pulmonary emboli. 2. There is large right pleural effusion with compressive atelectasis in the right lower lobe and middle lobe. 3. Multiple pulmonary nodules bilaterally. Concerning for metastatic neoplasm. Could be inflammatory. 4. Right hilar adenopathy. Chest Ultrasound 04/21/18 18:22 IMPRESSION: Right pleural effusion was identified for thoracentesis. Chest X-Ray 04/21/18 20:00 IMPRESSION: 1 Status post right thoracentesis. No evidence of pneumothorax. 2. Extensive right lung consolidation and small effusion again identified. 3. Stable scattered nodules in the lungs. Assessment & Plan - Diagnosis (1) Pleural effusion Is this a current diagnosis for this admission?: Yes Plan: Large right pleural effusion. The patient has consented for thoracentesis so fluid may be sent for cytology. Chemistry on fluid pending as is cytology. (2) Pneumonia Qualifiers: Pneumonia type: due to unspecified organism Laterality: right Lung location: lower lobe of lung Qualified Code(s): J18.1 - Lobar pneumonia, unspecified organism Is this a current diagnosis for this admission?: Yes Plan: IV antibiotics. (3) BRCA gene mutation positive in female Is this a current diagnosis for this admission?: Yes - Time Time Spent with patient: 25-34 minutes Medications reviewed and adjusted accordingly: Yes
[2018-04-22] MEDS: LORAZEPAM 0.5 MG TABLET PO SCH (18:19)
[2018-04-23] MEDS: ONDANSETRON 4 MG TAB.RAPDIS PO PRN (07:44)
[2018-04-23] MEDS: LORAZEPAM 0.5 MG TABLET PO PRN (07:49)
--- NOTE | 2018-04-23 08:25 | PDOC PROGRESS REPORT ---
Subjective Progress Note for:: 04/23/18 Subjective:: Patient states that pain and breathing difficulties she had on admission have now resolved. She has soreness from lying in bed and from the thoracentesis. She is still anxious and has nausea. Otherwise, she is anxious to go home. ROS : No constipation or diarrhea. No headache. Reason For Visit: DYSPNEA, PLEURAL EFFUSION Physical Exam Vital Signs: Temp Pulse Resp BP Pulse Ox 97.7 F 92 20 133/83 H 97 04/23/18 07:52 04/23/18 07:52 04/23/18 07:52 04/23/18 07:52 04/23/18 07:52 Intake & Output 04/22/18 04/23/18 04/24/18 06:59 06:59 06:59 Intake Total 917 840 Output Total 1700 Balance -783 840 Weight 55.7 kg 54.1 kg General appearance: PRESENT: no acute distress Eye exam: PRESENT: PERRLA Respiratory exam: PRESENT: decreased breath sounds - 1/3 way up on right. Improved aeration from yesterday. Cardiovascular exam: PRESENT: RRR, tachycardia Extremities exam: ABSENT: pedal edema Neurological exam: PRESENT: alert, awake, oriented to person, oriented to place , oriented to time, oriented to situation Psychiatric exam: PRESENT: appropriate affect Skin exam: PRESENT: normal color Results Laboratory Results: 04/22/18 10:54 04/22/18 10:54 04/22/18 04/22/18 10:54 10:54 WBC 9.6 RBC 4.19 Hgb 14.0 Hct 39.1 MCV 93 MCH 33.3 MCHC 35.7 RDW 13.2 Plt Count 340 Seg Neutrophils % 73.0 Lymphocytes % 15.9 Monocytes % 9.6 Eosinophils % 1.0 Basophils % 0.5 Absolute Neutrophils 7.0 Absolute Lymphocytes 1.5 Absolute Monocytes 0.9 Absolute Eosinophils 0.1 Absolute Basophils 0.0 Sodium 141.0 Potassium 4.6 Chloride 104 Carbon Dioxide 25 Anion Gap 12 BUN 6 L Creatinine 0.66 Est GFR ( Amer) > 60 Est GFR (Non-Af Amer) > 60 Glucose 106 Calcium 10.0 Total Bilirubin 0.5 AST 24 ALT 24 Alkaline Phosphatase 79 Total Protein 7.2 Albumin 4.1 04/21/18 05:00 Troponin I 0.012 Impressions: Chest/Abdomen CTA 04/20/18 19:16 IMPRESSION: 1. There is no evidence of pulmonary emboli. 2. There is large right pleural effusion with compressive atelectasis in the right lower lobe and middle lobe. 3. Multiple pulmonary nodules bilaterally. Concerning for metastatic neoplasm. Could be inflammatory. 4. Right hilar adenopathy. Chest Ultrasound 04/21/18 18:22 IMPRESSION: Right pleural effusion was identified for thoracentesis. Chest X-Ray 04/21/18 20:00 IMPRESSION: 1 Status post right thoracentesis. No evidence of pneumothorax. 2. Extensive right lung consolidation and small effusion again identified. 3. Stable scattered nodules in the lungs. Assessment & Plan - Diagnosis (1) Pleural effusion Is this a current diagnosis for this admission?: Yes Plan: Improved after thoracentesis. Await final cultures and path. (2) Pneumonia Qualifiers: Pneumonia type: due to unspecified organism Laterality: right Lung location: lower lobe of lung Qualified Code(s): J18.1 - Lobar pneumonia, unspecified organism Is this a current diagnosis for this admission?: Yes Plan: I would continue PO levaquin for total 10 days. (3) BRCA gene mutation positive in female Is this a current diagnosis for this admission?: Yes Plan: Await final path report. - Plan Summary Plan Summary: I discussed with Dr. Melgar. She agrees with plans to discharge today. I will follow-up with the patient about the pathology report as outpatient and repeat CT in 1-2 weeks to assure resolution of the lung process. Still unsure as to the final diagnosis of infectious or malignant process.
[2018-04-23] MEDS ORDERED: IBUPROFEN 400 MG TABLET PO PRN (08:33)
[2018-04-23] MEDS: ENOXAPARIN SODIUM INJ 40 MG/0.4 ML DISP.SYRIN SUBCUT SCH (10:26)
[2018-04-23] MEDS: PANTOPRAZOLE SODIUM 40 MG VIAL IV SCH (10:37)
[2018-04-23] MEDS ORDERED: LEVOFLOXACIN 750 MG TABLET PO SCH (11:00)
[2018-04-23 11:15] VITALS: BP 126/69
--- NOTE | 2018-04-23 14:09 | PROGRESS NOTE E ---
Progress Note NAME: ANGEL DONATO : 1980 AGE: 38Y DATE: 04/22/2014 ROOM: 403 SUBJECTIVE: The patient is a 38-year-old female who came in with a moderate amount of blurred vision by CT scan and chest ultrasound. Had a thoracentesis yesterday, doing 1 L of serosanguineous fluid. Currently, patient is feeling better. She claims that she is able to eat a lot better compared to yesterday prior to the thoracentesis. Denies any fever, increased cough, or hemoptysis. Denies any worsening pleuritic chest pain. No nausea, vomiting, diarrhea. OBJECTIVE: GENERAL: Patient is awake, alert, coherent, oriented x3. VITAL SIGNS: A temperature of 99.2 with a T-max of 99.2, heart rate 100, blood pressure is 126/69, respiratory rate of 16, saturation 97% on room air. EYES: No jaundice or pallor. EARS, NOSE, AND THROAT: No ear drainage. No nasal discharge. CHEST AND LUNGS: No wheezing. No rhonchi. No coarse crackles. Decreased breath sounds right lung, much lower than yesterday. CARDIOVASCULAR: S1, S2 distinct. Normal rate. Regular rhythm. ABDOMEN: Flabby. Positive bowel sounds. Soft, nondistended. EXTREMITIES: No joint swelling or cellulitis. LABORATORY: CBC done today showed a white count of 9.6, which is normal, hemoglobin is 14, and creatinine is 39.1, platelet count is 340. Chemistry is 131, potassium 4.1, chloride 104, CO2 is 25, BUN is 6, creatinine 0.66. LDH is 326, SGOT is 24, SGPT 34, albumin is 4.1 and total protein 9.2. The pleural fluid was described as dark yellow liquid. White count 113, RBC 6800, which is elevated,. Pleural fluid glucose, total protein, LDH, and amylase is pending. The pleural fluid cytology was pending. The pleural fluid microbiology results are still pending. ASSESSMENT: 1. PLEURAL EFFUSION, RIGHT SIDE MODERATE AMOUNT, SEROSANGUINEOUS CONCERNING FOR HAVING A PLEURAL EFFUSION. 2. BREAST CANCER STATUS POST MASTECTOMY AND CHEMOTHERAPY AND PRESENTING WITH BILATERAL PULMONARY METASTASES. PLAN/RECOMMENDATION: 1. Will wait for the results of the pleural fluid analysis and this can be done as outpatient. 2. Will sign off tonight. If you have any questions, please feel free to call me. Patient may call for a followup in 2-3 weeks after hospital discharge. 3. I think patient may be able to go home tomorrow if patient remains stable and no other concerns. DICTATING PHYSICIAN: TIGIST MALIK MD,LUIS.MPH [id number] PHY#: [id number] ID: [id number] JOB#: [id number] ACCT: [id number] cc: > MTDD
--- NOTE | 2018-04-23 16:08 | Physician Advisory Note ---
Physician Advisor ProgressNote .: Pursuant to the plan for [facility], I have reviewed the medical record for this patient. Physician Advisor Statement: Evidence for PNA is nicely presented: cough, CASILLAS, orthopnea, tachypnea, tachycardia, hypoxemia, decreased breath sounds, extensive consolidation, ... Please consider documenting, if you agree: 1. "Acute pleural effusion, suspect due to " - or is it chronic? 2. "PNA, suspect gram-__ type" 3. "Pulmonary nodules, suspect due to " 4. 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 CK
--- NOTE | 2018-04-23 18:44 | PDOC DISCHARGE SUMMARY ---
General - Admit/Disc Date/PCP Admission Date/Primary Care Provider: 04/20/18 23:25 AKILAH MOORE MD Discharge Date: 04/23/18 - Discharge Diagnosis (1) Pleural effusion Is this a current diagnosis for this admission?: Yes (2) Pneumonia Is this a current diagnosis for this admission?: Yes (3) BRCA gene mutation positive in female Is this a current diagnosis for this admission?: Yes - Additional Information Discharge Diet: Regular Discharge Activity: Activity As Tolerated, No Driving Prescriptions: Lactobacillus Acidophilus/Fos [Acidophilus Probiotic Tablet] 1 each PO BID #20 tablet Levofloxacin [Levaquin 750 mg Tablet] 750 mg PO DAILY #5 tablet Home Medications: Lorazepam 0.5 mg PO DAILY 12/08/16 Multivit with Calcium,Iron,Min [Multiple Vitamins For Women] 1 each PO DAILY 06/16 Ibuprofen [Motrin 800 mg Tablet] 800 mg PO Q8HP PRN #30 tablet 12/19/16 Lactobacillus Acidophilus/Fos [Acidophilus Probiotic Tablet] 1 each PO BID #20 tablet 04/23/18 Levofloxacin [Levaquin 750 mg Tablet] 750 mg PO DAILY #5 tablet 04/23/18 History of Present Illness History of Present Illness: ANGEL DONATO is a 38 year old female Hospital Course Hospital Course: The patient was admitted to a medical bed. She was started on IV antibiotics to cover for a possibly obstructive pneumonia. Hematology oncology was consulted as this patient has a history of breast cancer and is BRCA positive. She is at high risk for recurrence or spread. A thoracentesis was performed to determine the source of the pleural effusion. Chemistry and Cytology on this fluid is still pending, but it does not appear to be infected with pleocytosis of lymphocytes and scant neutrophils. The patient's dyspnea was much improved following the thoracentesis although a large pleural effusion remains. She will be discharged to home on PO antibiotics to follow up with Dr. Garcia as outpatient. Physical Exam Vital Signs: Temp Pulse Resp BP Pulse Ox 97.7 F 92 20 126/69 H 97 04/23/18 11:09 04/23/18 11:09 04/23/18 11:09 04/23/18 11:09 04/23/18 11:09 Intake & Output 04/22/18 04/23/18 04/24/18 06:59 06:59 06:59 Intake Total 917 840 480 Output Total 1700 Balance -783 840 480 Weight 55.7 kg 54.1 kg General appearance: PRESENT: no acute distress, cooperative, thin Respiratory exam: PRESENT: symmetrical, other - No increased work of breathing. Improved aeration throughout.. ABSENT: rales, rhonchi, wheezes Cardiovascular exam: PRESENT: RRR, other - No lateral PMI. No thrills.. ABSENT : gallop, rubs, systolic murmur Pulses: PRESENT: normal dorsalis pedis pul GI/Abdominal exam: PRESENT: normal bowel sounds, soft. ABSENT: hernia, mass, organolmegaly, tenderness Rectal exam: PRESENT: deferred Neurological exam: PRESENT: alert, awake, oriented to person, oriented to place , oriented to time, oriented to situation, CN II-XII grossly intact. ABSENT: motor sensory deficit Psychiatric exam: PRESENT: anxious, normal mood Skin exam: PRESENT: dry, intact, warm Results Laboratory Results: 04/22/18 10:54 04/22/18 10:54 04/21/18 05:00 Troponin I 0.012 Impressions: Chest/Abdomen CTA 04/20/18 19:16 IMPRESSION: 1. There is no evidence of pulmonary emboli. 2. There is large right pleural effusion with compressive atelectasis in the right lower lobe and middle lobe. 3. Multiple pulmonary nodules bilaterally. Concerning for metastatic neoplasm. Could be inflammatory. 4. Right hilar adenopathy. Chest Ultrasound 04/21/18 18:22 IMPRESSION: Right pleural effusion was identified for thoracentesis. Chest X-Ray 04/21/18 20:00 IMPRESSION: 1 Status post right thoracentesis. No evidence of pneumothorax. 2. Extensive right lung consolidation and small effusion again identified. 3. Stable scattered nodules in the lungs. Qualifiers - * PATIENT BEING DISCHARGED WITH ANY OF THE FOLLOWING DIAGNOSIS: No Plan Time Spent: Greater than 30 Minutes
== END 2018-04-23 12:10 | disposition home or self-care (01) | DRG 186 ==
LOC: ER 16:45 → EH 23:25 → 4W 04-21 08:34 → 4N 04-22 17:51
PROVIDERS: ADMIT Family Medicine; ATTEND Family Medicine
PROC: 0W993ZX Drainage of Right Pleural Cavity, Percutaneous Approach, Diagnostic (ICD-10-PCS; principal; 2018-04-21)
DX: J90 Pleural effusion, not elsewhere classified (principal); J18.9 Pneumonia, unspecified organism; Z85.3 Personal history of malignant neoplasm of breast; Z88.6 Allergy status to analgesic agent; Z88.8 Allergy status to other drugs, medicaments and biological substances; Z15.01 Genetic susceptibility to malignant neoplasm of breast; Z90.13 Acquired absence of bilateral breasts and nipples; Z92.21 Personal history of antineoplastic chemotherapy; Z87.891 Personal history of nicotine dependence
CPT/HCPCS: 36415; 71045; 71046; 71275; 76604; 80048; 80053; 82150; 82945; 83615; 83690; 83880; 84155; 84157; 84484; 84703; 85025; 85379; 86300; 87015; 87040; 87070; 87075; 87101; 87116; 87205; 87206; 88305; 88313; 88341; 88342; 89050; 93005; 93010; 94640; 96360; 99285; J1650; J1956; J3490; J7030; J7620; S0119; S0164

== ENCOUNTER → 2018-04-27 | Outpatient (CLI) | payer OTHER ==
--- NOTE | 2018-04-27 16:25 | RADIOLOGY REPORT (SQ) ---
EXAM DESCRIPTION: CT CHEST WITH; CT ABD/PELVIS WITH IV ORAL COMPLETED DATE/TIME: 04/27/2018 3:05 pm REASON FOR STUDY: C50.511 MALIG NEOPLM OF LOWER-OUTER QUADRANT OF RIGHT FEMALE BREAST C50.511 MALIG NEOPLM OF LOWER-OUTER QUADRANT OF RIGHT FEMALE COMPARISON: CT angio chest 04/20/2018 Right chest ultrasound 04/21/2018 AP chest 04/21/2018, 04/20/2018 CONTRAST TYPE AND DOSE: contrast/concentration: Isovue 350.00 mg/ml; Total Contrast Delivered: 58.0 ml; Total Saline Delivered: 65.0 ml RENAL FUNCTION: Creatinine 0.66 TECHNIQUE: CT scan of the chest performed using helical scanning technique with dynamic intravenous contrast injection. Images reviewed with lung, soft tissue and bone windows. Reconstructed coronal a nd sagittal MPR images reviewed. All images stored on PACS. CT scan of the abdomen and pelvis performed with intravenous and with oral contrastusing helical scan hamida technique with dynamic intravenous contrast injection. Images reviewed with lung, soft tissue a nd bone windows. Reconstructed coronal and sagittal MPR images reviewed. Delayed images for evaluat ion of the urinary system also acquired and evaluated. All images stored on PACS. All CT scanners at this facility use dose modulation, iterative reconstruction, and/or weight based d osing when appropriate to reduce radiation dose to as low as reasonably achievable (ALARA). [facility]: Dose Right [facility]: CareDose [facility]: Dose Right [facility]: Teradose 4D [facility]: [employer] RADIATION DOSE: CT Rad equipment meets quality standard of care and radiation dose reduction techniq ues were employed. CTDIvol: 4.4 - 5.0 mGy. DLP: 622 mGy-cm. . LIMITATIONS: None. FINDINGS: CHEST: LUNGS AND PLEURA: On the right side, a large recurrent right pleural effusion is present with near co mplete collapse of the right lung. The right pleural effusion is slightly larger compared to 04/20/[address] chest, with minimal mediastinal shift of structures towards the left. No right-sided pneumotho rax. Minimal aeration right lung apex is present. On the left side, there are multiple pulmonary nodules scattered throughout the lung parenchyma, up t o 1 cm in size. No left-sided pleural effusion. No right or left pneumothorax. HILAR AND MEDIASTINAL STRUCTURES: 2.2 x 1.4 cm precarinal lymph node axial image 20 HEART AND VASCULAR STRUCTURES: No aneurysm or dissection. No central pulmonary emboli. No pericardi al effusion. HARDWARE: Bilateral breast implants THYROID AND OTHER SOFT TISSUES: No masses. No adenopathy. BONES: No significant finding. OTHER: No other significant finding. ABDOMEN AND PELVIS: LIVER: Normal size. No masses. No dilated ducts. SPLEEN: Normal size. No focal lesions. PANCREAS: No masses. No significant calcifications. No adjacent inflammation or peripancreatic fluid collections. Pancreatic duct not dilated. GALLBLADDER: No identified stones by CT criteria. No inflammatory changes to suggest cholecystitis. ADRENAL GLANDS: No significant masses or asymmetry. RIGHT KIDNEY AND URETER: No solid masses. No significant calcification. No hydronephrosis or hydroure ter. LEFT KIDNEY AND URETER: No solid masses. No significant calcification. No hydronephrosis or hydrouret er. AORTA AND VESSELS: No aneurysm. No dissection. Renal arteries, SMA, celiac without stenosis. RETROPERITONEUM: No retroperitoneal adenopathy, hemorrhage or masses. BOWEL AND PERITONEAL CAVITY: Patient drank oral contrast. No CT evidence of bowel obstruction. No f ree intraperitoneal air or fluid. No masses or inflammatory changes. No free fluid or peritoneal mas ses. APPENDIX: Normal. ABDOMINAL WALL: No masses. No hernias. PELVIS: No mass or free fluid. Normal bladder. Post total hysterectomy BONES: No significant or acute findings. OTHER: Report discussed with Dr. Garcia IMPRESSION: Recurrent large right pleural effusion Multiple lung nodules worrisome for metastatic disease 2.2 x 1.4 cm enlarged precarinal lymph node No metastatic disease to the abdomen or pelvis COMMENT: Results discussed with the patient's oncologist TECHNICAL DOCUMENTATION: JOB ID: [id number] Quality ID # [id number]: Final reports with documentation of one or more dose reduction techniques (e.g., Au tomated exposure control, adjustment of the mA and/or kV according to patient size, use of iterative reconstruction technique) 2010 [employer]- All Rights Reserved Reading location - IP/workstation name: [facility]-[email or web address]
== END ==
LOC: RAD 17:37
PROVIDERS: ATTEND Internal Medicine Hematology & Oncology
DX: C50.511 Malignant neoplasm of lower-outer quadrant of right female breast (principal); J90 Pleural effusion, not elsewhere classified; R91.8 Other nonspecific abnormal finding of lung field
CPT/HCPCS: 71260; 74177

== ENCOUNTER → 2018-04-28 | Outpatient (CLI) | payer OTHER ==
[~2018-04-28] MED LIST changes: -CEFAZOLIN 1 GM/D5W RTU 1 GM/50 ML RTUPB IV PRN; -IBUPROFEN 800 MG TABLET PO PRN; -LACTATED RINGERS 1000 ML IV PRN; -LIDOCAINE 0.5% INJ-PF (5 MG/ML) 50 ML SDV SUBCUT PRN; +LIDOCAINE 1% INJ-PF (10 MG/ML) 30 ML SDV ONE; -OXYCODONE-ACETAMINOPHEN 5-325 MG TABLET PO PRN; -SCOPOLAMINE HYDROBROMIDE 1.5 MG PATCH.TD72 TD PRN
--- NOTE | 2018-04-30 10:04 | Operative Report ---
Nonrecallable Operative Report DATE OF SURGERY: 04/28/18 PREOPERATIVE DIAGNOSIS: Recurrent right pleural effusion, malignant POSTOPERATIVE DIAGNOSIS: Same as above OPERATION: Ultrasound-guided placement of a right percutaneous thoracostomy tube (10 Tamazight) SURGEON: RAMILA CABRERA ANESTHESIA: Local TISSUE REMOVED OR ALTERED: 1.6 L of right pleural fluid COMPLICATIONS: None apparent ESTIMATED BLOOD LOSS: Minimal PROCEDURE: Drains/implants: 10 Tamazight right tube thoracostomy. Procedure in detail: After informed consent was obtained, the patient was brought into the Application Architect. The area of the right chest was prepped and draped in a normal sterile fashion. 1% lidocaine was used to anesthetize the skin and soft tissues of the right chest wall. This was done in the mid axillary line. An incision was created in the skin and the 10 Tamazight drainage catheter was directed superiorly, over top of a rib, and into the pleural space. This was all performed under direct ultrasonic guidance. Once the catheter was inserted , 1.6 L of blood-tinged fluid was removed from the thoracic cavity. Catheter was sutured to the skin using 2-0 silk suture. A drainage bag was placed onto the catheter. A dressing was placed, and the procedure was concluded. All sponge, instrument, needle counts were correct 2. Condition: Fair.
== END ==
LOC: CCL 12:19
PROVIDERS: ATTEND Surgery
DX: C50.511 Malignant neoplasm of lower-outer quadrant of right female breast (principal); J91.0 Malignant pleural effusion
CPT/HCPCS: 88162; 88342 ×2; 88341 ×2; 88305 ×2; J3490

== ENCOUNTER 2018-10-25 13:26 | Emergency (ER) | payer OTHER ==
[2018-10-25] MEDS ORDERED: NORMAL SALINE 1000 ML 1,000 ML IV ONE ×4 (13:35→15:51)
[2018-10-25] MEDS ORDERED: LEVETIRACETAM 500 MG/NACL-ISO 500 MG/100 ML RTUPB IV ONE ×3 (13:37→18:13)
[2018-10-25] MEDS ORDERED: MIDAZOLAM 2 MG/2 ML INJ ONE (13:43)
[2018-10-25 13:44] LABS: ABSOLUTE LYMPHOCYTES (AUTO) 0.6 10^3/uL (0.5-4.7); ABSOLUTE MONOCYTES (AUTO) 0.3 10^3/uL (0.1-1.4); ABSOLUTE NEUT (AUTO) 8.1 10^3/uL (1.7-8.2); BASOPHILS % (AUTO) 0.1 % (0-2); HEMATOCRIT 30.8 % (36.0-47.0); HEMOGLOBIN 10.7 g/dL (12.0-15.5); MEAN CORPUSCULAR HEMOGLOBIN 34.5 pg (27.0-33.4); MEAN CORPUSCULAR HGB CONC 34.8 g/dL (32.0-36.0); MEAN CORPUSCULAR VOLUME 99 fl (80-97); MONOCYTES % (AUTO) 3.7 % (3-13); PLATELET COUNT 449 10^3/uL (150-450); RED BLOOD COUNT 3.11 10^6/uL (3.72-5.28); RED CELL DISTRIBUTION WIDTH 24.3 % (11.5-14.0); SEGMENTED NEUTROPHILS % (AUTO) 89.2 % (42-78); TOTAL CELLS COUNTED % (AUTO) 100 %; VENOUS BLOOD BASE EXCESS 4.7 mmol/L; VENOUS BLOOD HCO3 34.3 mmol/L (20-32); VENOUS BLOOD PH 7.24 (7.30-7.42); WHITE BLOOD COUNT 9.1 10^3/uL (4.0-10.5)
[2018-10-25 13:47] LABS: VENOUS BLOOD PCO2 81.9 mmHg (35-63)
[2018-10-25 13:49] LABS: PROTHROMBIN TIME 13.7 SEC (11.4-15.4)
[2018-10-25] MEDS ORDERED: ETOMIDATE INJ/PF 20 MG/10 ML SDV IV ONE ×3 (13:51→14:12)
[2018-10-25] MEDS ORDERED: PROPOFOL 1,000 MG/100 ML INFUS..BTL IV ONE (13:57)
[2018-10-25] MEDS: PROPOFOL 1,000 MG/100 ML INFUS..BTL IV PRN (14:02)
[2018-10-25 14:03] LABS: ALANINE AMINOTRANSFERASE 114 U/L (9-52); ALBUMIN 3.6 g/dL (3.5-5.0); ALKALINE PHOSPHATASE 136 U/L (38-126); ANION GAP 8 (5-19); ASPARTATE AMINO TRANSFERASE 49 U/L (14-36); BILIRUBIN,DIRECT 0.2 mg/dL (0.0-0.4); BILIRUBIN,TOTAL 0.7 mg/dL (0.2-1.3); BLOOD UREA NITROGEN 11 mg/dL (7-20); CALCIUM 8.3 mg/dL (8.4-10.2); CARBON DIOXIDE 34 mmol/L (22-30); CHLORIDE 87 mmol/L (98-107); GLUCOSE 167 mg/dL (75-110); POTASSIUM 4.8 mmol/L (3.6-5.0); SODIUM 128.7 mmol/L (137-145); TOTAL PROTEIN 6.1 g/dL (6.3-8.2)
--- NOTE | 2018-10-25 14:06 | RADIOLOGY REPORT (SQ) ---
EXAM DESCRIPTION: CHEST SINGLE VIEW COMPLETED DATE/TIME: 10/25/2018 1:47 pm REASON FOR STUDY: resp. distress COMPARISON: 05/19/2018 NUMBER OF VIEWS: One view. TECHNIQUE: Single frontal radiographic image of the chest acquired. LIMITATIONS: None. FINDINGS: LUNGS AND PLEURA: Clips left hilum. Slight increase in chronic pleural effusions, right g reater than left. Multiple pulmonary nodules in the left lung. Multiple pulmonary nodules in the le ft lung. MEDIASTINUM AND HEART: Stable heart size and mediastinal structures. SUPPORT DEVICES: Appropriate location without change. BONY STRUCTURES: No acute findings. HARDWARE: Node. OTHER: No other significant finding. IMPRESSION: Pulmonary nodules. Increasing pleural effusions. Reading location - IP/workstation name: [email or web address]
[2018-10-25] MEDS ORDERED: MIDAZOLAM 2 MG/2 ML INJ IV ONE (14:10)
--- NOTE | 2018-10-25 14:18 | ER Document Report ---
ED Seizure - General Chief Complaint: Probable Seizure Stated Complaint: DIFFICULTY BREATHING Time Seen by Provider: 10/25/18 14:08 Primary Care Provider: POPPY VARGAS FNP [Primary Care Provider] - Follow up as needed Notes: Patient had a seizure today. EMS was called to the home where the family described a fairly straightforward grand mal seizure. About 30 minutes after that first seizure, with EMS present, patient had another generalized grand mal seizure. Patient has breast cancer with known metastases to the brain and to lung. Patient was reported to have a temperature rectally of 102.3 last night. Also some fever this morning. For the last couple of days she has been acting sleepier than usual, but otherwise nothing unusual. She is never had a seizure before. Patient did have a passing out episode on August 25 after which she was transferred to [facility], where she gets all of her care, and was in the hospital there for 22 days. Family says that she did not have a seizure on that visit, just passed out. Supposedly has symptoms of pinkeye. COUNTRY TRAVELED TO/FROM: [place] - Related Data Allergies/Adverse Reactions: nitrofurantoin [From Macrobid] Allergy (Severe, Verified 09/25/14 15:17) swelling of airway promethazine HCl [From Phenergan] Allergy (Intermediate, Verified 09/25/14 15:17) HEART RACES codeine Allergy (Verified 12/19/16 06:32) yogurt Allergy (Intermediate, Uncoded 09/25/14 15:17) Hives Past Medical History - Social History Smoking Status: Unknown if Ever Smoked Family History: None, Reviewed & Not Pertinent Neurological Medical History: Reports: Hx Migraine. Denies: Hx Cerebrovascular Accident, Hx Seizures Malignancy Medical History: Reports: Hx Breast Cancer - Metastatic to brain and lung. GI Medical History: Reports: Hx Gastroesophageal Reflux Disease - with pregnanacy only Past Surgical History: Reports: Hx Section - x2, Other - Bilateral Mastectomies, Implant reconstruction, Bilateral Oophorectomy. - Immunizations Hx Diphtheria, Pertussis, Tetanus Vaccination: Yes Review of Systems - Review of Systems -: Yes ROS unobtainable due to patient's medical condition - Family not here when I recorded this review of systems. Physical Exam - Vital signs Vitals: Pulse Ox 98 10/25/18 13:29 Interpretation: Normal Notes: PHYSICAL EXAMINATION: GENERAL: Unconscious and unresponsive. Ventilations being assisted by bag valve mask. HEAD: Atraumatic, normocephalic. Almost completely hairless cranium. ENT: oropharynx clear without exudates. Moist mucous membranes. I do not see any evidence of conjunctivitis, which the patient reportedly has pinkeye. NECK: Normal range of motion, supple. LUNGS: Breath sounds with rhonchi and a few scattered wheezes bilaterally. HEART: Regular rate and rhythm without murmurs. Chest: Breast augmentation bilaterally. ABDOMEN: Soft, nontender. No guarding or rebound. No masses. BACK: No tenderness throughout entire back. EXTREMITIES: Normal range of motion without pain. NEUROLOGICAL: Neurologic assessment unable to be accomplished at this time. Patient is comatose and unresponsive. Does not follow commands. Does not move any of her 4 extremities. PSYCH: Unable to evaluate. SKIN: Warm, dry, no rashes. Course - Re-evaluation Re-evalutation: 10/25/18 15:27 Call placed to [facility], Dr. Fenton. 10/25/18 17:37 Spoke with several doctors at [place] and eventually spoke with Dr. Jackson, neurologist, who has an ICU bed for neuro patient and accepts this patient in transfer. Dr. Jackson asked that I fully load the patient with Keppra. She had been given 500 mg when she arrived. I would give her another 2000 mg now. Patient's blood pressure continues to decline and then come back above 100. I am going to give her a very low dose of Levophed. I am also going to empirically treat her with a gram of Rocephin since these are new onset seizures and she has had some low-grade fever for a day or so. I do not think it is logistically feasible to try to get an LP on this patient at this time. 10/25/18 19:59 Patient's care being turned over to Dr. Drake pending. Introduced Dr. Drake to the family. Explained to them that I have been told that there is going to be a bed available[facility], at [place]. They are awaiting people to be discharged to open beds in the units where this patient can go. Blood pressure remains borderline with the patient on a 4 mcg Levophed drip. - Vital Signs Vital signs: Temp Pulse Resp BP Pulse Ox 101.9 F H 26 H 105/70 100 10/26/18 00:11 10/26/18 00:11 10/26/18 00:11 10/26/18 00:11 - Laboratory Result Diagrams: 10/25/18 13:30 10/25/18 13:30 Laboratory results interpreted by me: 10/25/18 10/25/18 10/25/18 13:30 13:30 13:30 RBC 3.11 L Hgb 10.7 L Hct 30.8 L MCV 99 H MCH 34.5 H RDW 24.3 H Seg Neutrophils % 89.2 H Lymphocytes % 7.0 L VBG pH 7.24 L VBG pCO2 81.9 H* VBG HCO3 34.3 H Sodium 128.7 L Chloride 87 L Carbon Dioxide 34 H Creatinine 0.30 L Glucose 167 H Calcium 8.3 L AST 49 H ALT 114 H Alkaline Phosphatase 136 H Total Protein 6.1 L Urine Glucose (UA) 10/25/18 13:38 RBC Hgb Hct MCV MCH RDW Seg Neutrophils % Lymphocytes % VBG pH VBG pCO2 VBG HCO3 Sodium Chloride Carbon Dioxide Creatinine Glucose Calcium AST ALT Alkaline Phosphatase Total Protein Urine Glucose (UA) 50 H Procedures - Intubation Orotracheal Airway evaluation: Normal anatomy Medications: Etomidate, Fentanyl Blade type: Other Equipment used: Glidescope ETT size: 7.0 ETT secured at: Lips End tidal CO2 confirmed: Yes Discharge - Discharge Clinical Impression: Seizure, Breast cancer Condition: Critical Disposition: [place] Referrals: POPPY VARGAS FNP [Primary Care Provider] - Follow up as needed
[2018-10-25 14:31] LABS: ANISOCYTOSIS 3+; POIKILOCYTOSIS SLIGHT; STOMATOCYTES SLIGHT; TOXIC GRANULATION 2+
[2018-10-25 14:32] LABS: PLATELET COMMENT ADEQUATE
--- NOTE | 2018-10-25 14:34 | RADIOLOGY REPORT (SQ) ---
EXAM DESCRIPTION: CHEST SINGLE VIEW COMPLETED DATE/TIME: 10/25/2018 2:15 pm REASON FOR STUDY: POST ETT AND OG PLACEMENT COMPARISON: 10/25/2018 at 1339 hours. EXAM PARAMETERS: NUMBER OF VIEWS: One view. TECHNIQUE: Single frontal radiographic view of the chest acquired. RADIATION DOSE: NA LIMITATIONS: None. FINDINGS: LUNGS AND PLEURA: Large right pleural effusion. Scattered pulmonary nodules. MEDIASTINUM AND HILAR STRUCTURES: No masses. Contour normal. HEART AND VASCULAR STRUCTURES: Heart normal in size. Normal vasculature. BONES: No acute findings. HARDWARE: Endotracheal tube with the tip located 2 cm proximal to the parrish. Nasogastric tube with the tip in the stomach. OTHER: No other significant finding. IMPRESSION: INTERVAL PLACEMENT OF AN ENDOTRACHEAL TUBE AND A NASOGASTRIC TUBE WHICH APPEAR TO BE IN APPROPRIATE POSITION. OTHERWISE NO CHANGE. TECHNICAL DOCUMENTATION: JOB ID: [id number] [employer]- All Rights Reserved Reading location - IP/workstation name: [email or web address]
--- NOTE | 2018-10-25 14:38 | RADIOLOGY REPORT (SQ) ---
EXAM DESCRIPTION: CT HEAD WITHOUT COMPLETED DATE/TIME: 10/25/2018 2:30 pm REASON FOR STUDY: seizure COMPARISON: None. TECHNIQUE: Axial images acquired through the brain without intravenous contrast. Images reviewed wi th bone, brain and subdural windows. Additional sagittal and coronal reconstructions were generated. Images stored on PACS. All CT scanners at this facility use dose modulation, iterative reconstruction, and/or weight based d osing when appropriate to reduce radiation dose to as low as reasonably achievable (ALARA). [facility]: Dose Right [facility]: CareDose [facility]: Dose Right [facility]: Teradose 4D [facility]: [employer] RADIATION DOSE: CT Rad equipment meets quality standard of care and radiation dose reduction techniq ues were employed. CTDIvol: 53.2 mGy. DLP: 1070 mGy-cm. mGy. LIMITATIONS: None. FINDINGS: VENTRICLES: Normal size and contour. CEREBRUM: No masses. No hemorrhage. No midline shift. No evidence for acute infarction. Normal gra y/white matter differentiation. No areas of low density in the white matter. CEREBELLUM: No masses. No hemorrhage. No alteration of density. No evidence for acute infarction. EXTRAAXIAL SPACES: No fluid collections. No masses. ORBITS AND GLOBE: No intra- or extraconal masses. Normal contour of globe without masses. CALVARIUM: No fracture. PARANASAL SINUSES: No fluid or mucosal thickening. SOFT TISSUES: No mass or hematoma. OTHER: No other significant finding. IMPRESSION: NORMAL BRAIN CT WITHOUT CONTRAST. EVIDENCE OF ACUTE STROKE: NO. COMMENT: Quality ID # [id number]: Final reports with documentation of one or more dose reduction techniques (e.g., Automated exposure control, adjustment of the mA and/or kV according to patient size, use of iterative reconstruction technique) TECHNICAL DOCUMENTATION: JOB ID: [id number] [employer]- All Rights Reserved Reading location - IP/workstation name: [email or web address]
[2018-10-25 14:45] LABS: APPEARANCE,URINE SLIGHTLY-CLOUDY; BILIRUBIN,URINE NEGATIVE (NEGATIVE); COLOR,URINE YELLOW; GLUCOSE, URINE 50 mg/dL (NEGATIVE); KETONES,URINE NEGATIVE (NEGATIVE); LEUKOCYTE ESTERASE,URINE NEGATIVE (NEGATIVE); NITRITE,URINE NEGATIVE (NEGATIVE); PROTEIN,URINE NEGATIVE (NEGATIVE); URINE SPECIFIC GRAVITY 1.019; UROBILINOGEN,URINE NEGATIVE mg/dL (<2.0)
[2018-10-25] MEDS ORDERED: FENTANYL CITRATE INJ/PF 100 MCG/2 ML AMPUL IV ONE (16:40)
[2018-10-25] MEDS ORDERED: LEVETIRACETAM 1500 MG/NACL-ISO 1,500 MG/100 ML RTUPB IV ONE (17:25)
[2018-10-25] MEDS ORDERED: DEXTROSE 5%-WATER 250 ML with NOREPINEPHRINE BITARTRATE 4 MG IV PRN ×2 (17:29)
[2018-10-25] MEDS ORDERED: CEFTRIAXONE 1 GM/D5W RTU 1 GM/50 ML RTUPB IV ONE (17:30)
[2018-10-25] MEDS ORDERED: NOREPINEPHRINE BITARTRATE INJ/PF 4 MG/4 ML SDV IV ONE ×2 (17:30→23:03)
[2018-10-25] MEDS ORDERED: MIDAZOLAM HCL 50 MG/100 ML RTUINJ ONE (17:49)
[2018-10-25] MEDS ORDERED: MIDAZOLAM HCL 50 MG/100 ML RTUINJ IV PRN (17:58)
[2018-10-25] MEDS ORDERED: LEVETIRACETAM 1000 MG/NACL-ISO 1,000 MG/100 ML RTUPB IV ONE (18:13)
[2018-10-25] MEDS ORDERED: ACETAMINOPHEN 325 MG SUPP.RECT PR ONE (20:32)
[2018-10-25] MEDS ORDERED: ACETAMINOPHEN 650 MG SUPP.RECT PR ONE (20:32)
[2018-10-26] MEDS ORDERED: IBUPROFEN SUSP 100 MG/5 ML ORAL SYRINGE NG ONE (00:07)
[2018-10-26 00:54] VITALS: BP 105/70
--- NOTE | 2018-10-27 10:33 | EKG REPORT ---
SEVERITY:- ABNORMAL ECG - SINUS TACHYCARDIA pvc QUE, CONSIDER BIATRIAL ABNORMALITIES BORDERLINE T ABNORMALITIES, INFERIOR LEADS : Confirmed by: Abner Samuels 27-Oct-2018 10:33:27
== END 2018-10-26 00:45 | disposition short-term general hospital (02) ==
LOC: ER 13:26
DX: R56.9 Unspecified convulsions (principal); C50.912 Malignant neoplasm of unspecified site of left female breast; C50.911 Malignant neoplasm of unspecified site of right female breast; C78.00 Secondary malignant neoplasm of unspecified lung; C79.31 Secondary malignant neoplasm of brain; Z88.6 Allergy status to analgesic agent
CPT/HCPCS: 99285; 96361; 51702; 96375; 96365; 96367; 96368; 36415; 87040; 87086; 85025; 85610; 80053; 81001; 82803; 83605; 71045; 70450; 94660; 93005; 93010; 31500; J3490 ×2; J2250 ×2; J3010; J2704; J7060; J7030; J0696; J1953 ×2